=== PATIENT | male | born 1985 | race Hispanic/Latino ===

== ENCOUNTER 2017-09-11 12:43 | Emergency (ER) | payer SELFPAY ==
[2017-09-11] MEDS ORDERED: CATAPRES ONE (13:01)
[2017-09-11] MEDS ORDERED: CATAPRES PO ONE (13:08)
[2017-09-11] MEDS ORDERED: APRESOLINE IV ONE ×2 (16:19→18:08)
--- NOTE | 2017-09-11 16:26 | Emergency Department Report ---
HPI - General Chief Complaint: High BP Time Seen by Provider: 09/11/17 16:02 - HPI HPI: 32-year-old Afro-[place] male presents to the emergency department with 2 main complaints. First is that he says he has rectal bleeding when he has bowel movements. This is been going on since he was younger but there was a time where it stopped and restarted about one year ago. He says he came in today because the bleeding was more than usual. It is usually bright red and only occurs with bowel movements. He had his family member, who is bedside, take a look at the rectum and says that there are "sores" there. Second complaint is that he has elevated blood pressure. The patient does not appear to follow with any primary care physician and it is unknown whether he has never previously been diagnosed with hypertension but he was here in July with a hypertensive urgency at that time. He is not on any blood pressure medications. He denies any tobacco or illicit drug use. He does drink caffeinated products and eat a lot of salt. No recent travel or sick contacts at home. He has not taken anything for his symptoms prior to presentation. ED Past Medical Hx - Past Medical History Hx Hypertension: Yes Hx Psychiatric Treatment: Yes Hx Asthma: Yes - Social History Smoking Status: Never Smoker Substance Use Type: None - Medications Home Medications: Home Medications Medication Instructions Recorded Confirmed Last Taken Type amLODIPine [Norvasc] 10 mg PO DAILY #20 tablet 09/11/17 Unknown Rx ED Review of Systems ROS: Stated complaint: BLOOD IN STOOL Other details as noted in HPI Comment: All other systems reviewed and negative Constitutional: denies: chills, fever Eyes: denies: eye pain, eye discharge, vision change ENT: denies: ear pain, throat pain Respiratory: denies: cough, shortness of breath, wheezing Cardiovascular: denies: chest pain, palpitations Gastrointestinal: other (rectal bleeding). denies: abdominal pain, nausea, diarrhea, melena Genitourinary: denies: urgency, dysuria Musculoskeletal: denies: back pain, joint swelling, arthralgia Skin: denies: rash, lesions Neurological: denies: headache, weakness, paresthesias Physical Exam - Physical Exam Vital Signs: Vital Signs 09/11/17 12:57 Temperature 98.2 F Pulse Rate 99 H Respiratory 18 Rate Blood Pressure 212/138 O2 Sat by Pulse 96 Oximetry Physical Exam: GENERAL: The patient is well-developed well-nourished. HENT: Normocephalic. Atraumatic. Patient has moist mucous membranes. EYES: Extraocular motions are intact. Pupils equal reactive to light bilaterally. NECK: Supple. Trach is midline. CHEST/LUNGS: Clear to auscultation. There is no respiratory distress noted. HEART/CARDIOVASCULAR: Regular. There is no tachycardia. There is no murmur. ABDOMEN: Abdomen is soft, nontender. Patient has normal bowel sounds. Morbid obese habitus. SKIN: Skin is warm and dry. NEURO: The patient is awake, alert, and oriented. The patient is cooperative. The patient has no focal neurologic deficits. The patient has normal speech. MUSCULOSKELETAL: There is no tenderness or deformity. There is no limitation range of motion. There is no evidence of acute injury. RECTAL: No gross blood. Stool positive on guaiac testing. No visible or palpable lesions. ED Course Vital Signs 09/11/17 12:57 Temperature 98.2 F Pulse Rate 99 H Respiratory 18 Rate Blood Pressure 212/138 O2 Sat by Pulse 96 Oximetry - Pulse Oximetry Interpretation Digit-Finger Initial Pulse Oximetry Readin O2 Sat by Pulse Oximetry: 98 Actions Taken: none Additional Comments: Normal ED Medical Decision Making - Lab Data Result diagrams: 09/11/17 16:35 09/11/17 16:35 - EKG Data -: EKG Interpreted by Pa EKG shows normal: sinus rhythm, axis, intervals, QRS complexes (q waves to septal / anterior leads), ST-T waves Rate: normal - EKG Data When compared to previous EKG there are: previous EKG unavailable Interpretation: other (q waves to the septal / anterior leads) - Medical Decision Making Regarding the patient's blood pressure, came down to more reasonable level of about 155/100 after 2 different doses of hydralazine. The patient is not a tobacco smoker but does drink caffeinated products and eat a lot of foods that are bad for him that have a lot of salt in it. He has some room for dietary and lifestyle changes. However the patient will be started on Norvasc to be taken once daily. We discussed buying a blood pressure cuff and keeping a blood pressure log. He was given referrals for primary care. Regarding the patient's rectal bleeding, there was no gross blood but there was positive blood in the stool on guaiac testing. His hemoglobin is normal. Vital signs stable. He understands the importance of follow-up with a etiology teacher and that he may need a colonoscopy in the near future. He will return to the ER with any worsening of symptoms or any acute distress. The rest of his labs have been unremarkable. - Differential Diagnosis hemorrhoids, diverticulosis, malignancy Critical Care Time: No Critical care attestation.: If time is entered above; I have spent that time in minutes in the direct care of this critically ill patient, excluding procedure time. ED Disposition Clinical Impression: Asymptomatic hypertensive urgency, Rectal bleeding Disposition: TO HOME OR SELFCARE Is pt being admited?: No Condition: Stable Instructions: Rectal Bleeding (ED), Hypertension (ED) Additional Instructions: Please follow-up with a primary care physician in the next few days. Try and stay away from foods that are high in salt and caffeinated products to help with your blood pressure. Keep a blood pressure log. I'm starting you on a blood pressure medication: Norvasc/amlodipine that is to be taken once daily. I'm giving him a referral for a local etiology teacher, Dr. Smiley, to follow up regarding your rectal bleeding. Return to the emergency Department with any worsening of your symptoms or any acute distress. Prescriptions: amLODIPine [Norvasc] 10 mg PO DAILY #20 tablet Referrals: JULISA LAUREN MD [Staff Physician] - 3-5 Days CHANDLER SMILEY MD [Staff Physician] - 3-5 Days [facility] [Outside] - 3-5 Days Forms: Work/School Release Form(ED) Time of Disposition: 18:46
[2017-09-11 16:52] LABS: Basophils # (Auto) 0.1 K/mm3 (0.0-0.1); Basophils % (Auto) 2.1 % (0.0-1.8); Eosinophils # (Auto) 0.2 K/mm3 (0.0-0.4); Hematocrit 38.8 % (35.5-45.6); Hemoglobin 12.8 gm/dl (11.8-15.2); Lymphocytes # (Auto) 1.6 K/mm3 (1.2-5.4); Lymphocytes % (Auto) 26.8 % (13.4-35.0); Mean Corpuscular HGB Conc 33 % (32-34); Mean Corpuscular Hemoglobin 31 pg (28-32); Mean Corpuscular Volume 94 fl (84-94); Monocytes # (Auto) 0.5 K/mm3 (0.0-0.8); Monocytes % (Auto) 8.4 % (0.0-7.3); Platelet Count 201 K/mm3 (140-440); Red Blood Count 4.12 M/mm3 (3.65-5.03); Red Cell Distribution Width 13.4 % (13.2-15.2)
[2017-09-11 17:00] LABS: INR 0.88 (0.87-1.13)
[2017-09-11 17:12] LABS: Alanine Aminotransferase 69 units/L (7-56); Albumin 4.1 g/dL (3.9-5); BUN/Creatinine Ratio 17; Blood Urea Nitrogen 15 mg/dL (9-20); Calcium 8.9 mg/dL (8.4-10.2); Hemolysis Index 5
[2017-09-11] MEDS ORDERED: NORMODYNE IV ONE (18:42)
[2017-09-11 19:21] VITALS: BP 155/106
== END 2017-09-11 19:22 | disposition home or self-care (01) ==
LOC: ED 12:43
DX: I16.0 Hypertensive urgency (principal); K62.5 Hemorrhage of anus and rectum; I10 Essential (primary) hypertension
CPT/HCPCS: 36415; 80053; 85025; 85610; 85730; 96374; 96376; 99283; J0360; 93005; 93010

== ENCOUNTER 2019-06-19 10:36 | Emergency (ER) | payer SELFPAY ==
[2019-06-19] MEDS ORDERED: cloNIDine 0.2 MG TAB PO ONE (12:48)
--- NOTE | 2019-06-19 13:06 | Emergency Department Report ---
HPI - General Chief Complaint: High BP Time Seen by Provider: 06/19/19 12:48 - HPI HPI: Room 3 The patient is a 34-year-old male present with a chief complaint of hypertension. The patient states he has not had medication for his blood pressure the past 4 days. Patient states he decided to check his blood pressure at home and found himself to be hypertensive with a blood pressure of 170s/120s. When asked how he is feeling the patient states he feels "fine." ED Past Medical Hx - Past Medical History Hx Hypertension: Yes Hx Psychiatric Treatment: Yes Hx Asthma: Yes - Family History Family history: no significant - Social History Smoking Status: Never Smoker Substance Use Type: None (Denies illicit drug use) - Medications Home Medications: Home Medications Medication Instructions Recorded Confirmed Last Taken Type amLODIPine 10 mg PO DAILY #20 tablet 09/11/17 Unknown Rx amLODIPine 5 mg PO DAILY #90 tab 06/19/19 Unknown Rx ED Review of Systems ROS: Stated complaint: RX FOR BP Other details as noted in HPI Constitutional: no symptoms reported Eyes: denies: eye pain ENT: denies: throat pain Cardiovascular: denies: chest pain Endocrine: no symptoms reported Neurological: denies: headache Physical Exam - Physical Exam Vital Signs: Vital Signs 06/19/19 06/19/19 06/19/19 10:57 12:17 12:27 Temperature 98.6 F Pulse Rate 100 H 93 H 97 H Respiratory 20 13 15 Rate Blood Pressure 207/135 193/121 [Left] Blood Pressure 198/128 [Right] O2 Sat by Pulse 96 99 99 Oximetry Vital Signs 06/19/19 06/19/19 06/19/19 10:57 12:17 12:27 Temperature 98.6 F Pulse Rate 100 H 93 H 97 H Respiratory 20 13 15 Rate Blood Pressure Blood Pressure 207/135 193/121 [Left] Blood Pressure 198/128 [Right] O2 Sat by Pulse 96 99 99 Oximetry 06/19/19 06/19/19 06/19/19 13:00 13:03 13:45 Temperature Pulse Rate 95 H 90 Respiratory 14 17 Rate Blood Pressure 185/134 Blood Pressure 168/111 [Left] Blood Pressure [Right] O2 Sat by Pulse 99 Oximetry 06/19/19 14:17 Temperature Pulse Rate 87 Respiratory 20 Rate Blood Pressure Blood Pressure [Left] Blood Pressure 160/104 [Right] O2 Sat by Pulse 99 Oximetry Physical Exam: GENERAL: The patient is well-developed well-nourished male sitting on stretcher not appearing to be in acute distress. [] HEENT: Normocephalic. Atraumatic. Extraocular motions are intact. Patient has moist mucous membranes. NECK: Supple. Trachea midline CHEST/LUNGS: Clear to auscultation. There is no respiratory distress noted. HEART/CARDIOVASCULAR: Regular. There is no tachycardia. There is no gallop rub or murmur. ABDOMEN: Abdomen is soft, nontender. Patient has normal bowel sounds. There is no abdominal distention. SKIN: There is no rash. There is no edema. There is no diaphoresis. NEURO: The patient is awake, alert, and oriented. The patient is cooperative. The patient has no focal neurologic deficits. The patient has normal speech. Cranial nerves II through XII grossly intact, no drift MUSCULOSKELETAL: There is no evidence of acute injury. ED Course Vital Signs 06/19/19 06/19/19 06/19/19 10:57 12:17 12:27 Temperature 98.6 F Pulse Rate 100 H 93 H 97 H Respiratory 20 13 15 Rate Blood Pressure 207/135 193/121 [Left] Blood Pressure 198/128 [Right] O2 Sat by Pulse 96 99 99 Oximetry ED Medical Decision Making - Differential Diagnosis Accelerated hypertension, hypertensive urgency Critical care attestation.: If time is entered above; I have spent that time in minutes in the direct care of this critically ill patient, excluding procedure time. ED Disposition Clinical Impression: Uncontrolled hypertension Disposition: DC-01 TO HOME OR SELFCARE Is pt being admited?: No Does the pt Need Aspirin: No Condition: Stable Instructions: Hypertension (ED) Additional Instructions: Return to the emergency department should you develop worsening symptoms, inability to tolerate food or liquids, high fever or any other concerns Prescriptions: amLODIPine 5 mg PO DAILY #90 tab Referrals: JULISA MUIR MD [Staff Physician] - 3-5 Days Time of Disposition: 14:22
[2019-06-19 14:18] VITALS: BP 160/104
== END 2019-06-19 15:26 | disposition home or self-care (01) ==
LOC: ED 10:36
DX: I10 Essential (primary) hypertension (principal); J45.909 Unspecified asthma, uncomplicated; Z79.899 Other long term (current) drug therapy; Z88.8 Allergy status to other drugs, medicaments and biological substances
CPT/HCPCS: 99282

== ENCOUNTER 2021-01-02 20:54 | Emergency (ER) | payer SELFPAY | END 2021-01-02 21:58 | disposition left against medical advice (07) | LOC: ED 20:54 | DX: I10 Essential (primary) hypertension (principal); Z53.21 Procedure and treatment not carried out due to patient leaving prior to being seen by health care provider ==

== ENCOUNTER 2021-01-05 13:31 | Inpatient (IN) | payer OTHER ==
[2021-01-05 15:36] LABS: Basophils % (Auto) 0.2 % (0.0-1.8); Eosinophils # (Auto) 0.2 K/mm3 (0.0-0.4); Eosinophils % (Auto) 2.8 % (0.0-4.3); Hematocrit 36.4 % (35.5-45.6); Hemoglobin 12.4 gm/dl (11.8-15.2); Lymphocytes # (Auto) 1.2 K/mm3 (1.2-5.4); Lymphocytes % (Auto) 21.5 % (13.4-35.0); Mean Corpuscular HGB Conc 34 % (32-34); Mean Corpuscular Volume 92 fl (84-94); Monocytes # (Auto) 0.5 K/mm3 (0.0-0.8); Monocytes % (Auto) 9.2 % (0.0-7.3); Red Blood Count 3.98 M/mm3 (3.65-5.03); Red Cell Distribution Width 14.3 % (13.2-15.2)
--- NOTE | 2021-01-05 15:39 | XRay Report ---
CHEST 1 VIEW INDICATION / CLINICAL INFORMATION: Chest Pain STUDY TIME: 1510 COMPARISON: None available. FINDINGS: SUPPORT DEVICES: None HEART / MEDIASTINUM: No significant abnormality. LUNGS / PLEURA: No significant pulmonary or pleural abnormality. No pneumothorax. ADDITIONAL FINDINGS: No significant additional findings. Signer Name: Lobo Cooley MD Signed: 01/05/2021 3:35 PM Workstation Name: [id number] Authentication
[2021-01-05] MEDS ORDERED: niCARdipine 50 MG in SODIUM CHLORIDE 0.9% 250ML 230 ML IV SCH (16:00)
[2021-01-05 16:02] LABS: Albumin 3.5 g/dL (3.9-5)
[2021-01-05 16:13] LABS: Chol/HDL Ratio 3.87 %
[2021-01-05] MEDS: niCARdipine DRIP 40 MG/200 ML BAG IV SCH ×2 (16:15→20:35)
[2021-01-05 16:23] LABS: Platelet Count 98 K/mm3 (140-440)
--- NOTE | 2021-01-05 17:00 | Emergency Department Report ---
ED Neuro Deficit HPI - General Chief Complaint: High BP Stated Complaint: HIGH BLOOD PRESSURE Time Seen by Provider: 01/05/21 14:36 Source: patient Mode of arrival: Ambulatory Limitations: No Limitations - History of Present Illness Initial Comments: Chief complaint: My blood pressure was high, blurry vision, eye CLL HPI: This is a 35-year-old male with history of hypertension, diabetes mellitus, BMI 51 who presents with poor vision for several days he see the color yellow out of his right eye. Visual disturbance present for 4 to 5 days. He was e valuated at [facility] to 2 days ago. Vision slightly improved with blood pressure control. Visual disturbance then returned. He denies headache, chest pain, abdominal pain, paralysis or paresthesias. He does have mild shortness of breath. Patient was evaluated at [facility] his medical home. Systolic blood pressure 260 mmHg. He was referred to the emergency department. -: Gradual, days(s) (5 days) Location: other (Visual disturbance) Presenting Symptoms: Present: Blurred/Loss of Vision History of same: Yes Place: home Severity: severe Improves With: other (Blood pressure improvement) Worsens With: none On Anticoagulants: Yes Context: gradual onset Associated Symptoms: denies other symptoms Treatments Prior to Arrival: none - Related Data Home Medications: Home Medications Medication Instructions Recorded Confirmed Last Taken Aspirin [Aspirin BABY CHEW TAB] 81 mg PO QDAY 01/05/21 01/05/21 Unknown Atorvastatin Calcium [Lipitor] 40 mg PO HS 01/05/21 01/05/21 Unknown Furosemide [Lasix TAB] 40 mg PO QDAY 01/05/21 01/05/21 Unknown Isosorbide Dinitrate [Isordil] 20 mg PO BID 01/05/21 01/05/21 Unknown Losartan Potassium 12.5 mg PO DAILY 01/05/21 01/05/21 Unknown Metformin HCl [metFORMIN ER 500 mg PO BID 01/05/21 01/05/21 Unknown Osmotic] Proventil Hfa 90 mcg INHALATION Q6HR 01/05/21 01/05/21 Unknown carvediloL 25 mg PO BID 01/05/21 01/05/21 Unknown hydrALAZINE 100 mg PO TID 01/05/21 01/05/21 Unknown Allergies/Adverse Reactions: Allergies Allergy/AdvReac Type Severity Reaction Status Date / Time IVP DYE Allergy Vomiting Uncoded 01/05/21 13:49 ED Review of Systems ROS: Stated complaint: HIGH BLOOD PRESSURE Other details as noted in HPI Comment: All other systems reviewed and negative Constitutional: denies: chills, fever, malaise Eyes: vision change ENT: denies: throat pain Respiratory: denies: cough, shortness of breath Cardiovascular: denies: chest pain Gastrointestinal: denies: abdominal pain, nausea Neurological: denies: headache, weakness, numbness, paresthesias, abnormal gait, vertigo ED Past Medical Hx - Past Medical History Previous Medical History?: Yes Hx Hypertension: Yes Hx Congestive Heart Failure: Yes Hx Psychiatric Treatment: Yes Hx Asthma: Yes - Social History Smoking Status: Never Smoker Substance Use Type: None - Medications Home Medications: Home Medications Medication Instructions Recorded Confirmed Last Taken Type Aspirin [Aspirin BABY CHEW TAB] 81 mg PO QDAY 01/05/21 01/05/21 Unknown History Atorvastatin Calcium [Lipitor] 40 mg PO HS 01/05/21 01/05/21 Unknown History Furosemide [Lasix TAB] 40 mg PO QDAY 01/05/21 01/05/21 Unknown History Isosorbide Dinitrate [Isordil] 20 mg PO BID 01/05/21 01/05/21 Unknown History Losartan Potassium 12.5 mg PO DAILY 01/05/21 01/05/21 Unknown History Metformin HCl [metFORMIN ER 500 mg PO BID 01/05/21 01/05/21 Unknown History Osmotic] Proventil Hfa 90 mcg INHALATION Q6HR 01/05/21 01/05/21 Unknown History carvediloL 25 mg PO BID 01/05/21 01/05/21 Unknown History hydrALAZINE 100 mg PO TID 01/05/21 01/05/21 Unknown History ED Neuro Physical Exam - General Limitations: No Limitations General appearance: alert, in no apparent distress Suspected Stroke: Yes - Head Head exam: Present: atraumatic, normocephalic - Eye Eye exam: Present: normal appearance - ENT ENT exam: Present: mucous membranes moist - Neck Neck exam: Present: normal inspection - Respiratory Respiratory exam: Present: normal lung sounds bilaterally. Absent: respiratory distress - Cardiovascular Cardiovascular Exam: Present: regular rate, normal rhythm. Absent: systolic murmur, diastolic murmur, rubs, gallop - GI/Abdominal GI/Abdominal exam: Present: soft, normal bowel sounds - Rectal Rectal exam: Present: deferred - Extremities Exam Extremities exam: Present: normal inspection - Back Exam Back exam: Present: normal inspection - Neurological Exam Neurological exam: Present: alert, oriented X3 - NIHSS Assessment Interval: Baseline 1a. Level of Consciousness: alert/keenly responsive 1b. LOC Questions: answers both correctly 1c. LOC Commands: performs tasks correctly 2. Best Gaze: normal 3. Visual: no visual loss 4. Facial Palsy: normal symmetrical movement 5b. Motor Arm Right: no drift 5a. Motor Arm Left: no drift 6a. Motor Leg Left: no drift 6b. Motor Leg Right: no drift 7. Limb Ataxia: absent 8. Sensory: normal 9. Best Language: no aphasia 10. Dysarthria: normal 11. Extinction/Inattention: no abnormality Total Score: 0 Stroke Severity: No Stroke Symptoms - Psychiatric Psychiatric exam: Present: normal affect, normal mood - Skin Skin exam: Present: warm, dry, intact, normal color. Absent: rash ED Course Vital Signs 01/05/21 01/05/21 01/05/21 13:45 14:46 14:47 Temperature 98.6 F Pulse Rate 101 H 98 H Respiratory 18 17 24 Rate Blood Pressure 258/153 Blood Pressure 233/150 [Right] O2 Sat by Pulse 97 97 96 Oximetry 01/05/21 01/05/21 01/05/21 15:01 15:15 15:16 Temperature Pulse Rate 93 H 99 H Respiratory 19 16 18 Rate Blood Pressure 209/152 248/155 Blood Pressure [Right] O2 Sat by Pulse 96 95 98 Oximetry 01/05/21 01/05/21 01/05/21 15:31 15:45 16:01 Temperature Pulse Rate 89 81 92 H Respiratory 14 13 12 Rate Blood Pressure 244/153 227/159 236/148 Blood Pressure [Right] O2 Sat by Pulse 98 94 95 Oximetry 01/05/21 01/05/21 01/05/21 16:15 16:41 16:45 Temperature Pulse Rate 88 106 H 104 H Respiratory 19 22 22 Rate Blood Pressure 256/173 244/148 220/149 Blood Pressure [Right] O2 Sat by Pulse 95 98 93 Oximetry 01/05/21 01/05/21 17:01 17:15 Temperature Pulse Rate 97 H 98 H Respiratory 15 18 Rate Blood Pressure 230/140 226/151 Blood Pressure [Right] O2 Sat by Pulse 97 97 Oximetry - Lab Data Result diagrams: 01/05/21 15:22 01/05/21 15:22 Lab Results 01/05/21 01/05/21 Range/Units 15:22 15:22 WBC 5.7 (4.5-11.0) K/mm3 RBC 3.98 (3.65-5.03) M/mm3 Hgb 12.4 (11.8-15.2) gm/dl Hct 36.4 (35.5-45.6) % MCV 92 (84-94) fl MCH 31 (28-32) pg MCHC 34 (32-34) % RDW 14.3 (13.2-15.2) % Plt Count 98 L (140-440) K/mm3 Lymph % (Auto) 21.5 (13.4-35.0) % [place] % (Auto) 9.2 H (0.0-7.3) % Eos % (Auto) 2.8 (0.0-4.3) % Baso % (Auto) 0.2 (0.0-1.8) % Lymph # (Auto) 1.2 (1.2-5.4) K/mm3 [place] # (Auto) 0.5 (0.0-0.8) K/mm3 Eos # (Auto) 0.2 (0.0-0.4) K/mm3 Baso # (Auto) 0.0 (0.0-0.1) K/mm3 Seg Neutrophils % 66.3 (40.0-70.0) % Seg Neutrophils # 3.8 (1.8-7.7) K/mm3 Sodium 139 (137-145) mmol/L Potassium 3.7 (3.6-5.0) mmol/L Chloride 102.1 (98-107) mmol/L Carbon Dioxide 23 (22-30) mmol/L Anion Gap 18 mmol/L BUN 20 (9-20) mg/dL Creatinine 2.3 H (0.8-1.3) mg/dL Estimated GFR 32 ml/min BUN/Creatinine Ratio 9 % Glucose 208 H (75-100) mg/dL Calcium 9.0 (8.4-10.2) mg/dL Total Bilirubin 1.20 (0.1-1.2) mg/dL AST 27 (5-40) units/L ALT 25 (7-56) units/L Alkaline Phosphatase 66 (35-129) units/L Troponin T 0.042 H (0.00-0.029) ng/mL NT-Pro-B Natriuret Pep 2727 H (0-450) pg/mL Total Protein 6.4 (6.3-8.2) g/dL Albumin 3.5 L (3.9-5) g/dL Albumin/Globulin Ratio 1.2 % Triglycerides 289 H (2-149) mg/dL Cholesterol 155 (50-199) mg/dL LDL Cholesterol Direct 77 (50-130) mg/dL HDL Cholesterol 40 (40-59) mg/dL Cholesterol/HDL Ratio 3.87 % Laboratory Results - last 24 hr 01/05/21 01/05/21 15:22 15:22 WBC 5.7 RBC 3.98 Hgb 12.4 Hct 36.4 MCV 92 MCH 31 MCHC 34 RDW 14.3 Plt Count 98 L Lymph % (Auto) 21.5 [place] % (Auto) 9.2 H Eos % (Auto) 2.8 Baso % (Auto) 0.2 Lymph # (Auto) 1.2 [place] # (Auto) 0.5 Eos # (Auto) 0.2 Baso # (Auto) 0.0 Seg Neutrophils % 66.3 Seg Neutrophils # 3.8 Sodium 139 Potassium 3.7 Chloride 102.1 Carbon Dioxide 23 Anion Gap 18 BUN 20 Creatinine 2.3 H Estimated GFR 32 BUN/Creatinine Ratio 9 Glucose 208 H Calcium 9.0 Total Bilirubin 1.20 AST 27 ALT 25 Alkaline Phosphatase 66 Troponin T 0.042 H NT-Pro-B Natriuret Pep 2727 H Total Protein 6.4 Albumin 3.5 L Albumin/Globulin Ratio 1.2 Triglycerides 289 H Cholesterol 155 LDL Cholesterol Direct 77 HDL Cholesterol 40 Cholesterol/HDL Ratio 3.87 Vital Signs - 24 hr 01/05/21 01/05/21 01/05/21 13:45 14:46 14:47 Temperature 98.6 F Pulse Rate 101 H 98 H Respiratory 18 17 24 Rate Blood Pressure 258/153 Blood Pressure 233/150 [Right] O2 Sat by Pulse 97 97 96 Oximetry 01/05/21 01/05/21 01/05/21 15:01 15:15 15:16 Temperature Pulse Rate 93 H 99 H Respiratory 19 16 18 Rate Blood Pressure 209/152 248/155 Blood Pressure [Right] O2 Sat by Pulse 96 95 98 Oximetry 01/05/21 01/05/21 01/05/21 15:31 15:45 16:01 Temperature Pulse Rate 89 81 92 H Respiratory 14 13 12 Rate Blood Pressure 244/153 227/159 236/148 Blood Pressure [Right] O2 Sat by Pulse 98 94 95 Oximetry 01/05/21 01/05/21 01/05/21 16:15 16:41 16:45 Temperature Pulse Rate 88 106 H 104 H Respiratory 19 22 22 Rate Blood Pressure 256/173 244/148 220/149 Blood Pressure [Right] O2 Sat by Pulse 95 98 93 Oximetry 01/05/21 01/05/21 17:01 17:15 Temperature Pulse Rate 97 H 98 H Respiratory 15 18 Rate Blood Pressure 230/140 226/151 Blood Pressure [Right] O2 Sat by Pulse 97 97 Oximetry - EKG Data -: EKG Interpreted by Me EKG shows normal: sinus rhythm, axis Rate: normal 01/05/21 16:59 EKG obtained 1534 EKG interpreted by me Normal sinus rhythm rate 90 bpm normal axis prolonged QTC no ST elevation nonspecific T wave pattern inferior Q waves poor R wave progression anterior leads - Radiology Data Radiology results: report reviewed Patient Name: MIKE MONDRAGON Gender: Male Date of : 1985 Referring Provider: NICOLE PICHARDO Organization: [facility] Accession Number: [id number] Requested Date: January 05, 2021 15:15 Report Status: Final Requested Procedure: 1 Procedure Description: XR chest 1V ap Modality: XR Findings Reporting MD: Lobo Cooley Dictation Time: January 05, 2021 14:35 Information Technology Auditor: Not available Luster Applicator Date: CHEST 1 VIEW INDICATION / CLINICAL INFORMATION: Chest Pain STUDY TIME: 1510 COMPARISON: None available. FINDINGS: SUPPORT DEVICES: None HEART / MEDIASTINUM: No significant abnormality. LUNGS / PLEURA: No significant pulmonary or pleural abnormality. No pneumothorax. ADDITIONAL FINDINGS: No significant additional findings. Signer Name: Lobo Cooley MD Signed: 01/05/2021 2:35 PM Workstation Name: MARLO Patient Name: MIKE MONDRAGON Gender: Male Date of : 1985 Referring Provider: NICOLE PICHARDO Organization: [facility] Accession Number: [id number] Requested Date: January 05, 2021 15:43 Report Status: Final Requested Procedure: 1 Procedure Description: CT head/brain wo con Modality: CT Findings Reporting MD: Ant Romo Dictation Time: January 05, 2021 16:07 Information Technology Auditor: Not available Luster Applicator Date: CT BRAIN: 01/05/2021 INDICATION / CLINICAL INFORMATION: Visual disturbance. COMPARISON: None available. FINDINGS: BRAIN/INTRACRANIAL STRUCTURES: Unenhanced CT images of the brain demonstrate no evidence of acute intracranial abnormality. Ventricles and sulci are within normal limits of size and shape for a patient of this age. There is no CT evidence of acute ischemic injury, hemorrhage, or mass. There are no abnormal extra-axial fluid collections. EXTRACRANIAL STRUCTURES: Unremarkable. IMPRESSION: Negative unenhanced CT of the brain. All CT scans at this location are performed using dose reduction to ALARA by means of automated exposure control. Signer Name: Ant Romo MD Signed: 01/05/2021 4:07 PM Workstation Name: [id number] - Medical Decision Making 1. Hypertensive emergency with visual disturbance, Cardene drip initiated emergency department with goal systolic 190 mm Hg 2. CVA with visual disturbance, suspect posterior circulation distribution stroke, CT head, tPA not indicated due to time of onset of symptoms 4 to 5 days ago 3. Cardiomyopathy: Elevated BNP elevated troponin likely reflects structural heart disease, no indication of ACS 4. Acute kidney injury likely acute on chronic renal insufficiency, HTN possible with severe hypertension, patient had normal kidney function 2018 Critical Care Time: Yes Critical care time in (mins) excluding proc time.: 40 Critical care attestation.: If time is entered above; I have spent that time in minutes in the direct care of this critically ill patient, excluding procedure time. 40 minutes of critical care time excluding procedures were used in the care of the patient. I came immediately to the bedside upon patient's arrival to treatment room discussed treatment plan with the nursing team members. I reviewed electronic record. I was concerned for hypertensive emergency with endorgan damage. Patient required multiple interventions and reassessments. ED Disposition Clinical Impression: Hypertensive emergency, CVA (cerebral vascular accident), Visual disturbance, Acute renal insufficiency, Cardiomyopathy Disposition: 09 ADMITTED INPATIENT Is pt being admited?: No Condition: Fair Instructions: Hypertension (ED)
--- NOTE | 2021-01-05 17:12 | Cat Scan Report ---
CT BRAIN: 01/05/2021 INDICATION / CLINICAL INFORMATION: Visual disturbance. COMPARISON: None available. FINDINGS: BRAIN/INTRACRANIAL STRUCTURES: Unenhanced CT images of the brain demonstrate no evidence of acute int racranial abnormality. Ventricles and sulci are within normal limits of size and shape for a patient of this age. There is no CT evidence of acute ischemic injury, hemorrhage, or mass. There are no abnormal extra-ax ial fluid collections. EXTRACRANIAL STRUCTURES: Unremarkable. IMPRESSION: Negative unenhanced CT of the brain. All CT scans at this location are performed using dose reduction to ALARA by means of automated expos ure control. Signer Name: Ant Romo MD Signed: 01/05/2021 5:07 PM Workstation Name: [id number]
[2021-01-05 17:46] LABS: INR 0.9 (0.87-1.13)
[2021-01-05 17:51] LABS: Partial Thromboplastin Time 27.3 Sec. (24.2-36.6)
[2021-01-05 19:18] LABS: Amphetamine Screen,Urine Negative; Benzodiazepines Screen,Urine Negative; Cannabinoid Screen,Urine Negative; Cocaine Screen,Urine Negative; Methadone Screen,Urine Negative; Opiate Screen,Urine Negative
[2021-01-05] MEDS ORDERED: VALSARTAN 160MG TAB PO SCH ×2 (22:00→23:00)
[2021-01-05] MEDS ORDERED: NON-FORMULARY EACH (Metformin Hcl [Metformin Er Osmotic] 500 MG Tab.Er.24) PO SCH (22:15)
[2021-01-05] MEDS ORDERED: NON-FORMULARY EACH (Carvedilol 25 MG) PO SCH (22:15)
--- NOTE | 2021-01-05 22:17 | History and Physical Report ---
History of Present Illness Date of examination: 01/05/21 Date of admission: 01/05/21 17:32 Chief complaint: Blurred vision and headache History of present illness: 35-year-old -[place] male with history of hypertension and diabetes and hyperlipidemia comes in for blurred vision. In the emergency room patient blood pressure was 260/160. Patient was initiated on Cardene drip. Patient states that is compliant with his antihypertensive medications but I am doubtful about him being compliant. Patient has obesity and reservoir 1 7 with her kidneys. Patient has headache and blurred vision but no weakness in any of the 4 extremities. No chest pain. No shortness of breath. Patient was referred by [facility] after they found his blood pressure to be 260s systolic. - Past Medical History --Previous Medical History?: Yes --Hypertension: Yes --Congestive Heart Failure: Yes -- Psychiatric Treatment: Yes -- Asthma: Yes - Surgical history -- patient says that he had a cardiac cath and possibly had stents but not sure - Social History Smoking Status: Never Smoker Substance Use Type: None -Family history --Htn - Medications Home Medications: Home Medications Medication Instructions Recorded Confirmed Last Taken Type Aspirin [Aspirin BABY CHEW TAB] 81 mg PO QDAY 01/05/21 01/05/21 Unknown History Atorvastatin Calcium [Lipitor] 40 mg PO HS 01/05/21 01/05/21 Unknown History Furosemide [Lasix TAB] 40 mg PO QDAY 01/05/21 01/05/21 Unknown History Isosorbide Dinitrate [Isordil] 20 mg PO BID 01/05/21 01/05/21 Unknown History Losartan Potassium 12.5 mg PO DAILY 01/05/21 01/05/21 Unknown History Metformin HCl [metFORMIN ER 500 mg PO BID 01/05/21 01/05/21 Unknown History Osmotic] Proventil Hfa 90 mcg INHALATION Q6HR 01/05/21 01/05/21 Unknown History carvediloL 25 mg PO BID 01/05/21 01/05/21 Unknown History hydrALAZINE 100 mg PO TID 01/05/21 01/05/21 Unknown History Review of Systems ROS: Stated complaint: HIGH BLOOD PRESSURE Other details as noted in HPI Comment: All other systems reviewed and negative Constitutional: denies: chills, fever, malaise Eyes: vision change ENT: denies: throat pain Respiratory: denies: cough, shortness of breath Cardiovascular: denies: chest pain Gastrointestinal: denies: abdominal pain, nausea Neurological: denies: headache, weakness, numbness, paresthesias, abnormal gait, vertigo Medications and Allergies Allergies Allergy/AdvReac Type Severity Reaction Status Date / Time IVP DYE Allergy Vomiting Uncoded 01/05/21 13:49 Home Medications Medication Instructions Recorded Confirmed Last Taken Type Aspirin [Aspirin BABY CHEW TAB] 81 mg PO QDAY 01/05/21 01/05/21 Unknown History Atorvastatin Calcium [Lipitor] 40 mg PO HS 01/05/21 01/05/21 Unknown History Furosemide [Lasix TAB] 40 mg PO QDAY 01/05/21 01/05/21 Unknown History Isosorbide Dinitrate [Isordil] 20 mg PO BID 01/05/21 01/05/21 Unknown History Losartan Potassium 12.5 mg PO DAILY 01/05/21 01/05/21 Unknown History Metformin HCl [metFORMIN ER 500 mg PO BID 01/05/21 01/05/21 Unknown History Osmotic] Proventil Hfa 90 mcg INHALATION Q6HR 01/05/21 01/05/21 Unknown History carvediloL 25 mg PO BID 01/05/21 01/05/21 Unknown History hydrALAZINE 100 mg PO TID 01/05/21 01/05/21 Unknown History Active Meds: Active Medications Nicardipine/Sodium Chloride (Cardene Drip 40 Mg/200 Ml) 40 mg in 200 mls @ 25 mls/hr IV TITR KAREN; Protocol Last Admin: 01/05/21 20:35 Dose: 12.5 mg/hr, 62.5 mls/hr Documented by: Valsartan (Valsartan 160mg Tab) 160 mg PO DAILY KAREN Last Admin: 01/05/21 21:59 Dose: 160 mg Documented by: Exam - Constitutional Vitals: Temp Pulse Resp BP Pulse Ox 98.6 F 114 H 13 154/92 94 01/05/21 13:45 01/05/21 21:59 01/05/21 21:45 01/05/21 21:59 01/05/21 21:45 General appearance: Present: mild distress, well-nourished - EENT Eyes: Present: PERRL ENT: hearing intact, clear oral mucosa - Neck Neck: Present: supple, normal ROM - Respiratory Respiratory effort: normal Respiratory: bilateral: CTA - Cardiovascular Heart rate: 78 Rhythm: regular Heart Sounds: Present: S1 & S2. Absent: rub, click - Extremities Extremities: pulses symmetrical, No edema Peripheral Pulses: within normal limits - Abdominal General gastrointestinal: Present: soft, non-tender, non-distended, normal bowel sounds Male genitourinary: Present: normal - Integumentary Integumentary: Present: clear, warm, dry - Musculoskeletal Musculoskeletal: gait normal, strength equal bilaterally - Psychiatric Psychiatric: appropriate mood/affect, intact judgment & insight - Neurologic Neurologic: CNII-XII intact, moves all extremities HEART Score - HEART Score History: Moderately suspicious Risk factors: 1-2 risk factors Troponin: Troponin T 0.042 ng/mL (0.00-0.029) H 01/05/21 15:22 Troponin: < normal limit - Critical Actions Critical Actions: 0-3 pts:0.9-1.7%risk of adverse cardiac event.Candidate for discharge Results - Labs CBC & Chem 7: 01/05/21 15:22 01/06/21 04:16 Labs: Laboratory Last Values WBC 5.7 K/mm3 (4.5-11.0) 01/05/21 15:22 RBC 3.98 M/mm3 (3.65-5.03) 01/05/21 15:22 Hgb 12.4 gm/dl (11.8-15.2) 01/05/21 15:22 Hct 36.4 % (35.5-45.6) 01/05/21 15:22 MCV 92 fl (84-94) 01/05/21 15:22 MCH 31 pg (28-32) 01/05/21 15:22 MCHC 34 % (32-34) 01/05/21 15:22 RDW 14.3 % (13.2-15.2) 01/05/21 15:22 Plt Count 98 K/mm3 (140-440) L 01/05/21 15:22 Lymph % (Auto) 21.5 % (13.4-35.0) 01/05/21 15:22 [place] % (Auto) 9.2 % (0.0-7.3) H 01/05/21 15:22 Eos % (Auto) 2.8 % (0.0-4.3) 01/05/21 15:22 Baso % (Auto) 0.2 % (0.0-1.8) 01/05/21 15:22 Lymph # (Auto) 1.2 K/mm3 (1.2-5.4) 01/05/21 15:22 [place] # (Auto) 0.5 K/mm3 (0.0-0.8) 01/05/21 15:22 Eos # (Auto) 0.2 K/mm3 (0.0-0.4) 01/05/21 15:22 Baso # (Auto) 0.0 K/mm3 (0.0-0.1) 01/05/21 15:22 Seg Neutrophils % 66.3 % (40.0-70.0) 01/05/21 15:22 Seg Neutrophils # 3.8 K/mm3 (1.8-7.7) 01/05/21 15:22 PT 12.7 Sec. (12.2-14.9) 01/05/21 15:45 INR 0.90 (0.87-1.13) 01/05/21 15:45 APTT 27.3 Sec. (24.2-36.6) 01/05/21 15:45 Thrombin Time 19.0 Sec. (15.1-19.6) 01/05/21 15:45 Sodium 139 mmol/L (137-145) 01/05/21 15:22 Potassium 3.7 mmol/L (3.6-5.0) 01/05/21 15:22 Chloride 102.1 mmol/L (98-107) 01/05/21 15:22 Carbon Dioxide 23 mmol/L (22-30) 01/05/21 15:22 Anion Gap 18 mmol/L 01/05/21 15:22 BUN 20 mg/dL (9-20) 01/05/21 15:22 Creatinine 2.3 mg/dL (0.8-1.3) H 01/05/21 15:22 Estimated GFR 32 ml/min 01/05/21 15:22 BUN/Creatinine Ratio 9 % 01/05/21 15:22 Glucose 208 mg/dL (75-100) H 01/05/21 15:22 Calcium 9.0 mg/dL (8.4-10.2) 01/05/21 15:22 Total Bilirubin 1.20 mg/dL (0.1-1.2) 01/05/21 15:22 AST 27 units/L (5-40) 01/05/21 15:22 ALT 25 units/L (7-56) 01/05/21 15:22 Alkaline Phosphatase 66 units/L (35-129) 01/05/21 15:22 Troponin T 0.042 ng/mL (0.00-0.029) H 01/05/21 15:22 NT-Pro-B Natriuret Pep 2727 pg/mL (0-450) H 01/05/21 15:22 Total Protein 6.4 g/dL (6.3-8.2) 01/05/21 15:22 Albumin 3.5 g/dL (3.9-5) L 01/05/21 15:22 Albumin/Globulin Ratio 1.2 % 01/05/21 15:22 Triglycerides 289 mg/dL (2-149) H 01/05/21 15:22 Cholesterol 155 mg/dL (50-199) 01/05/21 15:22 LDL Cholesterol Direct 77 mg/dL (50-130) 01/05/21 15:22 HDL Cholesterol 40 mg/dL (40-59) 01/05/21 15:22 Cholesterol/HDL Ratio 3.87 % 01/05/21 15:22 Urine Opiates Screen Negative 01/05/21 17:32 Urine Methadone Screen Negative 01/05/21 17:32 Ur Barbiturates Screen Negative 01/05/21 17:32 Ur Phencyclidine Scrn Negative 01/05/21 17:32 Ur Amphetamines Screen Negative 01/05/21 17:32 U Benzodiazepines Scrn Negative 01/05/21 17:32 Urine Cocaine Screen Negative 01/05/21 17:32 U Marijuana (THC) Screen Negative 01/05/21 17:32 Drugs of Abuse Note Disclamer 01/05/21 17:32 Short CBC 01/05/21 Range/Units 15:22 WBC 5.7 (4.5-11.0) K/mm3 Hgb 12.4 (11.8-15.2) gm/dl Hct 36.4 (35.5-45.6) % Plt Count 98 L (140-440) K/mm3 BMP 01/05/21 01/06/21 15:22 04:16 Sodium 139 136 L Potassium 3.7 3.8 Chloride 102.1 99.5 Carbon Dioxide 23 25 BUN 20 21 H Creatinine 2.3 H 2.3 H Glucose 208 H 350 H Calcium 9.0 8.7 Cardiac Enzymes 01/05/21 Range/Units 15:22 Troponin T 0.042 H (0.00-0.029) ng/mL Liver Function 01/05/21 Range/Units 15:22 Total Bilirubin 1.20 (0.1-1.2) mg/dL AST 27 (5-40) units/L ALT 25 (7-56) units/L Alkaline Phosphatase 66 (35-129) units/L Albumin 3.5 L (3.9-5) g/dL - Imaging and Cardiology Imaging and Cardiology: Chest x-ray No acute abnormality head CT Negative Assessment and Plan Advance Directives: Yes (Full code) VTE prophylaxis?: Chemical Plan of care discussed with patient/family: Yes - Patient Problems (1) Hypertensive emergency Current Visit: Yes Status: Acute Plan to address problem: Patient was initiated on Cardene drip Patient was given his home medications Losartan was discontinued and started on valsartan 160 every 12 Patient blood pressure came down to reasonable readings of 145/95 in the emergency room Patient was downgraded from ICU admission to telemetry admission (2) TIA (transient ischemic attack) Current Visit: Yes Status: Acute Plan to address problem: Patient complains of blurred vision which is possibly secondary to his high blood pressure levels of 260/160 We will get neuro consult Neuro event unlikely (3) Elevated brain natriuretic peptide (BNP) level Current Visit: Yes Status: Acute Plan to address problem: Echocardiogram for ejection fraction and valve function (4) BHAVANA (acute kidney injury) Current Visit: Yes Status: Acute Plan to address problem: BHAVANA possibly superimposed on CKD given his longstanding hypertension Nephrology consult requested (5) Elevated troponin Current Visit: Yes Status: Chronic Plan to address problem: Probable troponin leak Cardiology consult Repeat troponins and CK levels (6) DVT prophylaxis Current Visit: Yes Status: Acute Plan to address problem: On heparin and GI prophylaxis
[2021-01-05] MEDS: carvediloL 25 MG TAB PO SCH (22:43)
[2021-01-05] MEDS ORDERED: ACETAMINOPHEN 325 MG TAB PO PRN (23:00)
[2021-01-05] MEDS ORDERED: ONDANSETRON 4 MG/2 ML INJ IV PRN (23:00)
[2021-01-05] MEDS ORDERED: METOCLOPRAMIDE 10 MG/2 ML INJ IV PRN (23:00)
[2021-01-05] MEDS ORDERED: oxyCODONE /ACETAMINOPHEN 5-325MG TAB PO PRN (23:00)
[2021-01-05] MEDS ORDERED: HYDROmorphone 1 MG/1 ML INJ IV PRN (23:00)
[2021-01-06] MEDS ORDERED: PROVENTIL 90 MCG INHALATION SCH
[2021-01-06] MEDS: hydrALAZINE 20 MG/1 ML INJ IV PRN ×3 (02:25→07:38)
[2021-01-06] MEDS: ISOSORBIDE DINITRATE 20 MG TAB PO SCH ×3 (03:04→21:05)
[2021-01-06 05:00] LABS: Calcium 8.7 mg/dL (8.4-10.2)
[2021-01-06] MEDS: ALBUTEROL 8.5 GM MDI INHALATION IH SCH ×2 (07:21→07:22)
[2021-01-06] MEDS ORDERED: NON-FORMULARY EACH (Hydralazine 100 MG) PO SCH (08:00)
[2021-01-06] MEDS ORDERED: metFORMIN XR 500MG TAB PO SCH (08:00)
[2021-01-06] MEDS: hydrALAZINE 100 MG TAB PO SCH ×3 (08:13→21:05)
[2021-01-06 09:09] LABS: Creatine Kinase MB 4.2 ng/mL (0.0-4.0)
--- NOTE | 2021-01-06 09:22 | Consultation ---
History of Present Illness Consult date: 01/06/21 Reason for Consult: Blurred vision and headache,BP initial 260/160 ? History of present illness: Blurred vision and headache History of present illness: 35-year-old -[place]er male with history of hypertension and diabetes and hyperlipidemia comes in for blurred vision. In the emergency room patient blood pressure was 260/160. Patient was initiated on Cardene drip. Patient states that is compliant with his antihypertensive medications but I am doubtful about him being compliant. Patient has obesity and reservoir 1 7 with her kidneys. Patient has headache and blurred vision but no weakness in any of the 4 extremities. No chest pain. No shortness of breath. Patient was referred by [facility] [place] after they found his blood pressure to be 260s systolic. he is alert oriented today no headache , still with blurred vision he is complying with his medications - Past Medical History --Previous Medical History?: Yes --Hypertension: Yes --Congestive Heart Failure: Yes -- Psychiatric Treatment: Yes -- Asthma: Yes - Surgical history -- patient says that he had a cardiac cath and possibly had stents but not sure - Social History Smoking Status: Never Smoker Substance Use Type: None -Family history --Htn - Medications Home Medications: Home Medications Medication Instructions Recorded Confirmed Last Taken Type Aspirin [Aspirin BABY CHEW TAB] 81 mg PO QDAY 01/05/21 01/05/21 Unknown History Atorvastatin Calcium [Lipitor] 40 mg PO HS 01/05/21 01/05/21 Unknown History Furosemide [Lasix TAB] 40 mg PO QDAY 01/05/21 01/05/21 Unknown History Isosorbide Dinitrate [Isordil] 20 mg PO BID 01/05/21 01/05/21 Unknown History Losartan Potassium 12.5 mg PO DAILY 01/05/21 01/05/21 Unknown History Metformin HCl [metFORMIN ER 500 mg PO BID 01/05/21 01/05/21 Unknown History Osmotic] Proventil Hfa 90 mcg INHALATION Q6HR 01/05/21 01/05/21 Unknown History carvediloL 25 mg PO BID 01/05/21 01/05/21 Unknown History hydrALAZINE 100 mg PO TID 01/05/21 01/05/21 Unknown History Review of Systems ROS: Stated complaint: HIGH BLOOD PRESSURE Other details as noted in HPI Comment: All other systems reviewed and negative Constitutional: denies: chills, fever, malaise Eyes: vision change ENT: denies: throat pain Respiratory: denies: cough, shortness of breath Cardiovascular: denies: chest pain Gastrointestinal: denies: abdominal pain, nausea Neurological: denies: headache, weakness, numbness, paresthesias, abnormal gait, vertigo Medications and Allergies Allergies Allergy/AdvReac Type Severity Reaction Status Date / Time IVP DYE Allergy Vomiting Uncoded 01/05/21 13:49 Home Medications Medication Instructions Recorded Confirmed Last Taken Type Aspirin [Aspirin BABY CHEW TAB] 81 mg PO QDAY 01/05/21 01/05/21 Unknown History Atorvastatin Calcium [Lipitor] 40 mg PO HS 01/05/21 01/05/21 Unknown History Furosemide [Lasix TAB] 40 mg PO QDAY 01/05/21 01/05/21 Unknown History Isosorbide Dinitrate [Isordil] 20 mg PO BID 01/05/21 01/05/21 Unknown History Losartan Potassium 12.5 mg PO DAILY 01/05/21 01/05/21 Unknown History Metformin HCl [metFORMIN ER 500 mg PO BID 01/05/21 01/05/21 Unknown History Osmotic] Proventil Hfa 90 mcg INHALATION Q6HR 01/05/21 01/05/21 Unknown History carvediloL 25 mg PO BID 01/05/21 01/05/21 Unknown History hydrALAZINE 100 mg PO TID 01/05/21 01/05/21 Unknown History Active Meds: Active Medications Nicardipine/Sodium Chloride (Cardene Drip 40 Mg/200 Ml) 40 mg in 200 mls @ 25 mls/hr IV TITR KAREN; Protocol Last Admin: 01/05/21 20:35 Dose: 12.5 mg/hr, 62.5 mls/hr Documented by: Valsartan (Valsartan 160mg Tab) 160 mg PO DAILY KAREN Last Admin: 01/05/21 21:59 Dose: 160 mg Documented by: Medications and Allergies Allergies Allergy/AdvReac Type Severity Reaction Status Date / Time IVP DYE Allergy Vomiting Uncoded 01/05/21 13:49 Home Medications Medication Instructions Recorded Confirmed Last Taken Type Aspirin [Aspirin BABY CHEW TAB] 81 mg PO QDAY 01/05/21 01/05/21 Unknown History Atorvastatin Calcium [Lipitor] 40 mg PO HS 01/05/21 01/05/21 Unknown History Furosemide [Lasix TAB] 40 mg PO QDAY 01/05/21 01/05/21 Unknown History Isosorbide Dinitrate [Isordil] 20 mg PO BID 01/05/21 01/05/21 Unknown History Losartan Potassium 12.5 mg PO DAILY 01/05/21 01/05/21 Unknown History Metformin HCl [metFORMIN ER 500 mg PO BID 01/05/21 01/05/21 Unknown History Osmotic] Proventil Hfa 90 mcg INHALATION Q6HR 01/05/21 01/05/21 Unknown History carvediloL 25 mg PO BID 01/05/21 01/05/21 Unknown History hydrALAZINE 100 mg PO TID 01/05/21 01/05/21 Unknown History Active Meds: Active Medications Acetaminophen (Acetaminophen 325 Mg Tab) 650 mg PO Q4H PRN PRN Reason: Pain MILD(1-3)/Fever >100.5/SAWANT Last Admin: 01/05/21 22:43 Dose: 650 mg Documented by: Albuterol (Albuterol 8.5 Gm Mdi Inhalation) 2 puff IH Q6HR [facility] Last Admin: 01/06/21 07:22 Dose: Not Given Documented by: Amlodipine Besylate (Amlodipine 10 Mg Tab) 10 mg PO QDAY [facility] Aspirin (Aspirin 81 Mg Tab Chew) 81 mg PO QDAY [facility] Atorvastatin Calcium (Atorvastatin 40 Mg Tab) 40 mg PO QHS [facility] Carvedilol (Carvedilol 25 Mg Tab) 25 mg PO BID [facility] Last Admin: 01/05/21 22:43 Dose: 25 mg Documented by: Clonidine HCl (Clonidine 0.1 Mg Tab) 0.1 mg PO Q12HR [facility] Famotidine (Famotidine 20 Mg Tab) 20 mg PO BID [facility] Heparin Sodium (Porcine) (Heparin 5,000 Unit/1 Ml Vial) 5,000 unit SUB-Q Q12HR [facility] Hydralazine HCl (Hydralazine 20 Mg/1 Ml Inj) 10 mg IV Q2H PRN PRN Reason: Blood Pressure Last Admin: 01/06/21 07:38 Dose: 10 mg Documented by: Hydralazine HCl (Hydralazine 100 Mg Tab) 100 mg PO TID [facility] Last Admin: 01/06/21 08:13 Dose: 100 mg Documented by: Hydromorphone HCl (Hydromorphone 1 Mg/1 Ml Inj) 0.5 mg IV Q3H PRN PRN Reason: Pain , Severe (7-10) Nicardipine/Sodium Chloride (Cardene Drip 40 Mg/200 Ml) 40 mg in 200 mls @ 25 mls/hr IV TITR [facility]; Protocol Last Admin: 01/05/21 20:35 Dose: 12.5 mg/hr, 62.5 mls/hr Documented by: Insulin Human Lispro (Insulin Lispro 100 Unit/Ml) 0 unit SUB-Q ACHS [facility]; Protocol Isosorbide Dinitrate (Isosorbide Dinitrate 20 Mg Tab) 20 mg PO BID [facility] Last Admin: 01/06/21 03:04 Dose: 20 mg Documented by: Metformin HCl (Metformin Xr 500mg Tab) 500 mg PO BIDDIAB [facility] Metoclopramide HCl (Metoclopramide 10 Mg/2 Ml Inj) 10 mg IV Q6H PRN PRN Reason: Nausea And Vomiting Ondansetron HCl (Ondansetron 4 Mg/2 Ml Inj) 4 mg IV Q8H PRN PRN Reason: Nausea And Vomiting Oxycodone/Acetaminophen (Oxycodone /Acetaminophen 5-325mg Tab) 1 tab PO Q6H PRN PRN Reason: Pain, Moderate (4-6) Sodium Chloride (Sodium Chloride 0.9% 10 Ml Flush Syringe) 10 ml IV BID [facility] Sodium Chloride (Sodium Chloride 0.9% 10 Ml Flush Syringe) 10 ml IV PRN PRN PRN Reason: LINE FLUSH Physical Examination - Vital Signs Vital Signs: Vital Signs Temp Pulse Resp BP Pulse Ox 98.6 F 101 H 18 258/153 97 01/05/21 13:45 01/05/21 13:45 01/05/21 13:45 01/05/21 13:45 01/05/21 13:45 - Constitutional General appearance: comfortable - EENT EENT: Present: PERRL, mucous membranes moist - Respiratory Respiratory: Present: lungs clear, rhonchi - Cardiovascular Cardiovascular: Present: regular rate, normal S1, normal S2 Extremities: Present: no peripheral edema bilatateraly, no clubbing, cyanosis - Gastrointestinal Gastrointestinal: Present: normoactive bowel sounds - Integumentary Integumentary: Present: normal - Neurologic Cranial nerve examination: PERRL, EOMI, intact Speech examination: intact Sensorimotor examination: intact Detailed motor examination: grossly full strength in - Level of Consciousness 1a. Level of Consciousness: alert/keenly responsive - LOC Questions 1b. LOC Questions: answers both correctly - LOC Command 1c. LOC Commands: performs tasks correctly - Best Gaze 2. Best Gaze: normal - Visual 3. Visual: no visual loss - Facial Palsy 4. Facial Palsy: normal symmetrical movement - Motor Arm 5a. Motor Arm Left: no drift 5b. Motor Arm Right: no drift - Motor Leg 6a. Motor Leg Left: no drift 6b. Motor Leg Right: no drift - Limb Ataxia 7. Limb Ataxia: absent - Sensory 8. Sensory: normal - Best Language 9. Best Language: no aphasia - Dysarthria 10. Dysarthria: normal - Extinction and Inattention 11. Extinction/Inattention: no abnormality - Scoring Total Score: 0 Stroke Severity: No Stroke Symptoms Results - Laboratory Findings CBC and BMP: 01/05/21 15:22 01/06/21 04:16 Abnormal Lab Findings: Abnormal Labs 01/05/21 01/05/21 01/06/21 15:22 15:22 04:16 Plt Count 98 L [place] % (Auto) 9.2 H Sodium 136 L BUN 21 H Creatinine 2.3 H 2.3 H Glucose 208 H 350 H POC Glucose Total Creatine Kinase CK-MB (CK-2) Troponin T 0.042 H NT-Pro-B Natriuret Pep 2727 H Albumin 3.5 L Triglycerides 289 H 01/06/21 01/06/21 08:24 08:54 Plt Count [place] % (Auto) Sodium BUN Creatinine Glucose POC Glucose 321 H Total Creatine Kinase 363 H CK-MB (CK-2) 4.2 H Troponin T 0.039 H NT-Pro-B Natriuret Pep Albumin Triglycerides Assessment and Plan Assessment and Plan Advance Directives: Yes (Full code) VTE prophylaxis?: Chemical Plan of care discussed with patient/family: Yes - Patient Problems # Hypertensive emergency Patient was initiated on Cardene drip Patient was given his home medications Losartan was discontinued and started on valsartan 160 every 12 Patient blood pressure came down to reasonable readings of 145/95 in the emergency room Patient was downgraded from ICU admission to telemetry admission # blurred vison with no weakness -NIH#0 -finding is mostly related to above -PRESS can not be excluded -No sign to suggest CVA/TIA -MRI brain is pending #Elevated brain natriuretic peptide (BNP) level -Echocardiogram for ejection fraction and valve function # BHAVANA (acute kidney injury) -BHAVANA possibly superimposed on CKD given his longstanding hypertension -Nephrology consult requested # Elevated troponin -Probable troponin leak -Cardiology consult -Repeat troponins and CK levels # Possible underlying sleep apnea -weight loss -sleep study -check TSH # DVT prophylaxis -On heparin and GI prophylaxis PLAN 1- BP<150/80 2-Close monitering of BP at home 3-weight loss 4- MRI brain 5- ASA 81 mg and Lipitor 40 mg 6- LDL#77 will follow
[2021-01-06] MEDS: cloNIDine 0.1 MG TAB PO SCH ×2 (09:40→21:04)
[2021-01-06] MEDS: ASPIRIN 81 MG TAB CHEW PO SCH (09:40)
[2021-01-06] MEDS: carvediloL 25 MG TAB PO SCH ×2 (09:41→21:05)
[2021-01-06] MEDS: HEPARIN 5,000 UNIT/1 ML VIAL SUB-Q SCH ×2 (09:41→21:06)
[2021-01-06] MEDS: amLODIPine 10 MG TAB PO SCH (09:41)
[2021-01-06] MEDS: INSULIN LISPRO 100 UNIT/ML SUB-Q SCH ×4 (09:42→23:06)
[2021-01-06] MEDS ORDERED: FUROSEMIDE 40 MG TAB PO SCH (10:00)
[2021-01-06] MEDS ORDERED: FAMOTIDINE 20 MG TAB PO SCH (10:00)
--- NOTE | 2021-01-06 10:23 | Progress Note ---
Assessment and Plan Assessment and plan: -- Hypertensive emergency; present on admission Current Visit: Yes Status: Acute Patient did not need Cardene drip Blood pressures moderate control Continue current medications And as needed hydralazine --Blurred vision /probably secondary to hypertensive emergency Rule out TIA (transient ischemic attack) Current Visit: Yes Status: Acute CT head without contrast no acute abnormality Neurology evaluation noted and appreciated Recommend MRI of the brain --Elevated brain natriuretic peptide (BNP) level Current Visit: Yes Status: Acute Echocardiogram for ejection fraction and valve function Cardiology following --BHAVANA (acute kidney injury) Current Visit: Yes Status: Acute Vasomotor nephropathy , closely monitor renal function Avoid nephrotoxin , renal ultrasound Nephrology consult -- Elevated troponin Current Visit: Yes Status: Acute Probably nonspecific Hypertensive cardiomyopathy Cardiology evaluation noted and appreciated Possible stress test tomorrow -Uncontrolled type 2 diabetes mellitus; Current Visit: Yes Status: Chronic Probably noncompliance with medications Accu-Chek sliding scale coverage ADA diet Long-acting insulin Novolin 70/30 15 units twice a day HbA1c --Dyslipidemia; Current Visit: Yes Status: Chronic Low-cholesterol diet, statin Rigorous exercise as tolerated --morbid obesity; BMI 51.5; Current Visit: Yes Status: Chronic Patient needs diet modification lifestyle changes exercise as tolerated and weight reduction when medically stable Patient also need outpatient pulmonary evaluation for sleep study to rule out obstructive sleep apnea --medical noncompliance/social issues; Current Visit: Yes Status: Chronic Case management to assist with social issues --DVT prophylaxis Current Visit: Yes Status: Acute On heparin and GI prophylaxis We will closely monitor patient and adjust management as needed Plan of care reviewed with the patient and his nurse Security System Sales Consultant recommendations noted and appreciated History Interval history: I have seen and examined the patient at the bedside Patient's chart and medications reviewed Patient was admitted with hypertensive emergency Blood pressures moderate control Hospitalist Physical - Constitutional Vitals: Temp Pulse Resp BP Pulse Ox 98.6 F 101 H 20 176/101 97 01/05/21 13:45 01/06/21 07:39 01/06/21 07:39 01/06/21 07:39 01/06/21 07:39 General appearance: Present: mild distress, well-nourished - EENT Eyes: Present: PERRL, EOM intact - Neck Neck: Present: supple, normal ROM - Respiratory Respiratory effort: normal Respiratory: bilateral: diminished, negative: rales, rhonchi, wheezing - Cardiovascular Rhythm: regular Heart Sounds: Present: S1 & S2 - Extremities Extremities: no ischemia, No edema - Abdominal General gastrointestinal: soft, non-tender, non-distended, normal bowel sounds - Integumentary Integumentary: Present: clear, warm - Psychiatric Psychiatric: appropriate mood/affect, cooperative - Neurologic Neurologic: CNII-XII intact, moves all extremities HEART Score - HEART Score Risk factors: 1-2 risk factors Troponin: Troponin T 0.039 ng/mL (0.00-0.029) H 01/06/21 08:24 Troponin: < normal limit - Critical Actions Critical Actions: 0-3 pts:0.9-1.7%risk of adverse cardiac event.Candidate for discharge Results - Labs CBC & Chem 7: 01/05/21 15:22 01/06/21 04:16 Labs: Laboratory Last Values WBC 5.7 K/mm3 (4.5-11.0) 01/05/21 15: RBC 3.98 M/mm3 (3.65-5.03) 01/05/21 15:22 Hgb 12.4 gm/dl (11.8-15.2) 01/05/21 15:22 Hct 36.4 % (35.5-45.6) 01/05/21 15:22 MCV 92 fl (84-94) 01/05/21 15:22 MCH 31 pg (28-32) 01/05/21 15:22 MCHC 34 % (32-34) 01/05/21 15:22 RDW 14.3 % (13.2-15.2) 01/05/21 15:22 Plt Count 98 K/mm3 (140-440) L 01/05/21 15:22 Lymph % (Auto) 21.5 % (13.4-35.0) 01/05/21 15:22 [place] % (Auto) 9.2 % (0.0-7.3) H 01/05/21 15:22 Eos % (Auto) 2.8 % (0.0-4.3) 01/05/21 15:22 Baso % (Auto) 0.2 % (0.0-1.8) 01/05/21 15:22 Lymph # (Auto) 1.2 K/mm3 (1.2-5.4) 01/05/21 15:22 [place] # (Auto) 0.5 K/mm3 (0.0-0.8) 01/05/21 15:22 Eos # (Auto) 0.2 K/mm3 (0.0-0.4) 01/05/21 15:22 Baso # (Auto) 0.0 K/mm3 (0.0-0.1) 01/05/21 15:22 Seg Neutrophils % 66.3 % (40.0-70.0) 01/05/21 15:22 Seg Neutrophils # 3.8 K/mm3 (1.8-7.7) 01/05/21 15:22 PT 12.7 Sec. (12.2-14.9) 01/05/21 15:45 INR 0.90 (0.87-1.13) 01/05/21 15:45 APTT 27.3 Sec. (24.2-36.6) 01/05/21 15:45 Thrombin Time 19.0 Sec. (15.1-19.6) 01/05/21 15:45 Sodium 136 mmol/L (137-145) L 01/06/21 04:16 Potassium 3.8 mmol/L (3.6-5.0) 01/06/21 04:16 Chloride 99.5 mmol/L (98-107) 01/06/21 04:16 Carbon Dioxide 25 mmol/L (22-30) 01/06/21 04:16 Anion Gap 15 mmol/L 01/06/21 04:16 BUN 21 mg/dL (9-20) H 01/06/21 04:16 Creatinine 2.3 mg/dL (0.8-1.3) H 01/06/21 04:16 Estimated GFR 32 ml/min 01/06/21 04:16 BUN/Creatinine Ratio 9 % 01/06/21 04:16 Glucose 350 mg/dL (75-100) H 01/06/21 04:16 POC Glucose 321 mg/dL (70-105) H 01/06/21 08:54 Calcium 8.7 mg/dL (8.4-10.2) 01/06/21 04:16 Total Bilirubin 1.20 mg/dL (0.1-1.2) 01/05/21 15:22 AST 27 units/L (5-40) 01/05/21 15:22 ALT 25 units/L (7-56) 01/05/21 15:22 Alkaline Phosphatase 66 units/L (35-129) 01/05/21 15:22 Total Creatine Kinase 363 units/L (55-170) H 01/06/21 08:24 CK-MB (CK-2) 4.2 ng/mL (0.0-4.0) H 01/06/21 08:24 CK-MB (CK-2) Rel Index 1.1 (0-4) 01/06/21 08:24 Troponin T 0.039 ng/mL (0.00-0.029) H 01/06/21 08:24 NT-Pro-B Natriuret Pep 2727 pg/mL (0-450) H 01/05/21 15:22 Total Protein 6.4 g/dL (6.3-8.2) 01/05/21 15:22 Albumin 3.5 g/dL (3.9-5) L 01/05/21 15:22 Albumin/Globulin Ratio 1.2 % 01/05/21 15:22 Triglycerides 289 mg/dL (2-149) H 01/05/21 15:22 Cholesterol 155 mg/dL (50-199) 01/05/21 15:22 LDL Cholesterol Direct 77 mg/dL (50-130) 01/05/21 15:22 HDL Cholesterol 40 mg/dL (40-59) 01/05/21 15:22 Cholesterol/HDL Ratio 3.87 % 01/05/21 15:22 Urine Opiates Screen Negative 01/05/21 17:32 Urine Methadone Screen Negative 01/05/21 17:32 Ur Barbiturates Screen Negative 01/05/21 17:32 Ur Phencyclidine Scrn Negative 01/05/21 17:32 Ur Amphetamines Screen Negative 01/05/21 17:32 U Benzodiazepines Scrn Negative 01/05/21 17:32 Urine Cocaine Screen Negative 01/05/21 17:32 U Marijuana (THC) Screen Negative 01/05/21 17:32 Drugs of Abuse Note Disclamer 01/05/21 17:32 Active Medications - Current Medications Current Medications: Generic Name Dose Route Start Last Admin Trade Name Freq PRN Reason Stop Dose Admin Acetaminophen 650 mg 01/05/21 23:00 01/05/21 22:43 Acetaminophen 325 Mg Tab PO 650 mg Q4H PRN Administration Pain MILD(1-3)/Fever >100.5/SAWANT Albuterol 2 puff 01/06/21 01:00 01/06/21 07:22 Albuterol 8.5 Gm Mdi Inhalation IH Not Given Q6HR [facility] Amlodipine Besylate 10 mg 01/06/21 10:00 01/06/21 09:41 Amlodipine 10 Mg Tab PO 10 mg QDAY KAREN Administration Aspirin 81 mg 01/06/21 10:00 01/06/21 09:40 Aspirin 81 Mg Tab Chew PO 81 mg QDAY KAREN Administration Atorvastatin Calcium 40 mg 01/06/21 22:00 Atorvastatin 40 Mg Tab PO QHS KAREN Carvedilol 25 mg 01/05/21 23:00 01/06/21 09:41 Carvedilol 25 Mg Tab PO 25 mg BID KAREN Administration Clonidine HCl 0.1 mg 01/06/21 10:00 01/06/21 09:40 Clonidine 0.1 Mg Tab PO 0.1 mg Q12HR KAREN Administration Famotidine 20 mg 01/06/21 10:00 01/06/21 09:41 Famotidine 20 Mg Tab PO 20 mg BID KAREN Administration Heparin Sodium (Porcine) 5,000 unit 01/06/21 10:00 01/06/21 09:41 Heparin 5,000 Unit/1 Ml Vial SUB-Q 5,000 unit Q12HR KAREN Administration Hydralazine HCl 10 mg 01/05/21 23:00 01/06/21 07:38 Hydralazine 20 Mg/1 Ml Inj IV 10 mg Q2H PRN Administration Blood Pressure Hydralazine HCl 100 mg 01/06/21 08:00 01/06/21 08:13 Hydralazine 100 Mg Tab PO 100 mg TID KAREN Administration Hydromorphone HCl 0.5 mg 01/05/21 23:00 Hydromorphone 1 Mg/1 Ml Inj IV Q3H PRN Pain , Severe (7-10) Nicardipine/Sodium Chloride 40 mg in 200 mls @ 25 mls/hr 01/05/21 16:00 01/05/21 20:35 Cardene Drip 40 Mg/200 Ml IV 12.5 mg/hr TITR KAREN 62.5 mls/hr Administration Protocol 5 MG/HR Insulin Human Lispro 0 unit 01/06/21 07:30 01/06/21 09:42 Insulin Lispro 100 Unit/Ml SUB-Q 8 unit ACHS KAREN Administration Protocol Isosorbide Dinitrate 20 mg 01/05/21 23:00 01/06/21 09:40 Isosorbide Dinitrate 20 Mg Tab PO 20 mg BID KAREN Administration Metformin HCl 500 mg 01/06/21 08:00 Metformin Xr 500mg Tab PO BIDDIAB KAREN Metoclopramide HCl 10 mg 01/05/21 23:00 Metoclopramide 10 Mg/2 Ml Inj IV Q6H PRN Nausea And Vomiting Ondansetron HCl 4 mg 01/05/21 23:00 Ondansetron 4 Mg/2 Ml Inj IV Q8H PRN Nausea And Vomiting Oxycodone/Acetaminophen 1 tab 01/05/21 23:00 Oxycodone /Acetaminophen 5-325mg Tab PO Q6H PRN Pain, Moderate (4-6) Sodium Chloride 10 ml 01/06/21 10:00 01/06/21 09:42 Sodium Chloride 0.9% 10 Ml Flush Syringe IV 10 ml BID KAREN Administration Sodium Chloride 10 ml 01/05/21 23:00 Sodium Chloride 0.9% 10 Ml Flush Syringe IV PRN PRN LINE FLUSH
[2021-01-06] MEDS ORDERED: METOCLOPRAMIDE 10 MG/2 ML INJ IV PRN (12:00)
[2021-01-06] MEDS ORDERED: ALBUTEROL 2.5 MG/3 ML NEBU IH PRN (12:00)
--- NOTE | 2021-01-06 15:53 | Consultation ---
History of Present Illness Consult date: 01/06/21 Requesting physician: DESIRE SINCLAIR Consult reason: other (hypertensive emergency) History of present illness: Patient is 35 y/o male with a PMHx of HNT, DM, HLD who came to the Ed with a complaint of of headaches and blurred vision. Patient reports that for last 5 days his BP has been extremely elevated but that when his vision became blurred he came to ED. He also reports that last month he went to doctors office where before he left he had to take medications to decrease his BP. He was unable to provide the doctor that he saw or the medication he was given. He admits that his BP is chronically elevated. Patient denies chest pain, SOB, WHELAN, nausea or vomiting. In Ed patients BP was found to be 260/160, troponins 0.042, BNP 2727. Cardiology is consulted for elevated troponins and hypertensive emergency. Past History Past Medical History: diabetes, hypertension Past Surgical History: No surgical history Social history: lives with family Family history: no significant family history Medications and Allergies Allergies Allergy/AdvReac Type Severity Reaction Status Date / Time IVP DYE Allergy Vomiting Uncoded 01/05/21 13:49 Home Medications Medication Instructions Recorded Confirmed Last Taken Type Aspirin [Aspirin BABY CHEW TAB] 81 mg PO QDAY 01/05/21 01/05/21 Unknown History Atorvastatin Calcium [Lipitor] 40 mg PO HS 01/05/21 01/05/21 Unknown History Furosemide [Lasix TAB] 40 mg PO QDAY 01/05/21 01/05/21 Unknown History Isosorbide Dinitrate [Isordil] 20 mg PO BID 01/05/21 01/05/21 Unknown History Losartan Potassium 12.5 mg PO DAILY 01/05/21 01/05/21 Unknown History Metformin HCl [metFORMIN ER 500 mg PO BID 01/05/21 01/05/21 Unknown History Osmotic] Proventil Hfa 90 mcg INHALATION Q6HR 01/05/21 01/05/21 Unknown History carvediloL 25 mg PO BID 01/05/21 01/05/21 Unknown History hydrALAZINE 100 mg PO TID 01/05/21 01/05/21 Unknown History Active Meds: Active Medications Acetaminophen (Acetaminophen 325 Mg Tab) 650 mg PO Q4H PRN PRN Reason: Pain MILD(1-3)/Fever >100.5/SAWANT Last Admin: 01/05/21 22:43 Dose: 650 mg Documented by: Albuterol (Albuterol 2.5 Mg/3 Ml Nebu) 2.5 mg IH Q6HR PRN PRN Reason: Shortness Of Breath Amlodipine Besylate (Amlodipine 10 Mg Tab) 10 mg PO QDAY [facility] [place] Last Admin: 01/06/21 09:41 Dose: 10 mg Documented by: Aspirin (Aspirin 81 Mg Tab Chew) 81 mg PO QDAY [facility] [place] Last Admin: 01/06/21 09:40 Dose: 81 mg Documented by: Atorvastatin Calcium (Atorvastatin 40 Mg Tab) 40 mg PO QHS [facility] [place] Carvedilol (Carvedilol 25 Mg Tab) 25 mg PO BID [facility] [place] Last Admin: 01/06/21 09:41 Dose: 25 mg Documented by: Clonidine HCl (Clonidine 0.1 Mg Tab) 0.1 mg PO Q12HR [facility] [place] Last Admin: 01/06/21 09:40 Dose: 0.1 mg Documented by: Famotidine (Famotidine 10 Mg Tab) 10 mg PO BID [facility] [place] Heparin Sodium (Porcine) (Heparin 5,000 Unit/1 Ml Vial) 5,000 unit SUB-Q Q12HR [facility] [place] Last Admin: 01/06/21 09:41 Dose: 5,000 unit Documented by: Hydralazine HCl (Hydralazine 20 Mg/1 Ml Inj) 10 mg IV Q2H PRN PRN Reason: Blood Pressure Last Admin: 01/06/21 07:38 Dose: 10 mg Documented by: Hydralazine HCl (Hydralazine 100 Mg Tab) 100 mg PO TID [facility] [place] Last Admin: 01/06/21 14:29 Dose: 100 mg Documented by: Hydromorphone HCl (Hydromorphone 1 Mg/1 Ml Inj) 0.5 mg IV Q3H PRN PRN Reason: Pain , Severe (7-10) Sodium Chloride (Nacl 0.9% 1000 Ml) 1,000 mls @ 100 mls/hr IV DIRECT [facility] [place] Insulin Human Isoph/Insulin Regular (Insulin Nph/Regular 70/30 Inj) 15 unit SUB-Q BIDDIAB [facility] [place] Insulin Human Lispro (Insulin Lispro 100 Unit/Ml) 0 unit SUB-Q ACHS [facility] [place]; Protocol Last Admin: 01/06/21 14:29 Dose: 8 unit Documented by: Isosorbide Dinitrate (Isosorbide Dinitrate 20 Mg Tab) 20 mg PO BID [facility] [place] Last Admin: 01/06/21 09:40 Dose: 20 mg Documented by: Metoclopramide HCl (Metoclopramide 10 Mg/2 Ml Inj) 5 mg IV Q6H PRN PRN Reason: Nausea And Vomiting Ondansetron HCl (Ondansetron 4 Mg/2 Ml Inj) 4 mg IV Q8H PRN PRN Reason: Nausea And Vomiting Oxycodone/Acetaminophen (Oxycodone /Acetaminophen 5-325mg Tab) 1 tab PO Q6H PRN PRN Reason: Pain, Moderate (4-6) Sodium Chloride (Sodium Chloride 0.9% 10 Ml Flush Syringe) 10 ml IV BID [facility] [place] Last Admin: 01/06/21 09:42 Dose: 10 ml Documented by: Sodium Chloride (Sodium Chloride 0.9% 10 Ml Flush Syringe) 10 ml IV PRN PRN PRN Reason: LINE FLUSH Review of Systems Constitutional: no weight loss, no weight gain, no fever Eyes: bilateral: blurred vision Ears, nose, mouth and throat: headache, no ear pain, no ear discharge, no tinnitis Cardiovascular: no chest pain, no orthopnea, no palpitations Respiratory: no cough, no cough with sputum, no shortness of breath, no dyspnea on exertion Gastrointestinal: no abdominal pain, no nausea, no vomiting, no diarrhea Musculoskeletal: no neck stiffness, no shooting arm pain Integumentary: no rash, no pruritis, no redness, no sores Neurological: no head injury, no transient paralysis, no paralysis, no weakness Psychiatric: no anxiety, no memory loss Endocrine: no cold intolerance, no heat intolerance Hematologic/Lymphatic: no easy bruising, no easy bleeding Physical Examination Vital Signs Temp Pulse Resp BP Pulse Ox 98.6 F 101 H 18 258/153 97 01/05/21 13:45 01/05/21 13:45 01/05/21 13:45 01/05/21 13:45 01/05/21 13:45 General appearance: no acute distress HEENT: Positive: PERRL Neck: Positive: trachea midline Cardiac: Positive: Reg Rate and Rhythm Lungs: Positive: clear to auscultation, Normal Breath Sounds Neuro: Positive: Grossly Intact Abdomen: Positive: Soft, Active Bowel Sounds Skin: Negative: Rash, Suspicious Lesions, Ulceration Extremities: Present: upper extr. pulses, lower extr. pulses. Absent: edema Results 01/05/21 15:22 01/06/21 04:16 Cardiac Enzymes 01/05/21 01/06/21 Range/Units 15:22 08:24 AST 27 (5-40) units/L CK-MB (CK-2) 4.2 H (0.0-4.0) ng/mL Coagulation 01/05/21 Range/Units 15:45 PT 12.7 (12.2-14.9) Sec. INR 0.90 (0.87-1.13) APTT 27.3 (24.2-36.6) Sec. Lipids 01/05/21 Range/Units 15:22 Triglycerides 289 H (2-149) mg/dL Cholesterol 155 (50-199) mg/dL HDL Cholesterol 40 (40-59) mg/dL Cholesterol/HDL Ratio 3.87 % CBC 01/05/21 Range/Units 15:22 WBC 5.7 (4.5-11.0) K/mm3 RBC 3.98 (3.65-5.03) M/mm3 Hgb 12.4 (11.8-15.2) gm/dl Hct 36.4 (35.5-45.6) % Plt Count 98 L (140-440) K/mm3 Lymph # (Auto) 1.2 (1.2-5.4) K/mm3 Comprehensive Metabolic Panel 01/05/21 01/06/21 Range/Units 15:22 04:16 Sodium 139 136 L (137-145) mmol/L Potassium 3.7 3.8 (3.6-5.0) mmol/L Chloride 102.1 99.5 (98-107) mmol/L Carbon Dioxide 23 25 (22-30) mmol/L BUN 20 21 H (9-20) mg/dL Creatinine 2.3 H 2.3 H (0.8-1.3) mg/dL Glucose 208 H 350 H (75-100) mg/dL Calcium 9.0 8.7 (8.4-10.2) mg/dL AST 27 (5-40) units/L ALT 25 (7-56) units/L Alkaline Phosphatase 66 (35-129) units/L Total Protein 6.4 (6.3-8.2) g/dL Albumin 3.5 L (3.9-5) g/dL - Imaging and Cardiology Echo: pending EKG: report reviewed, image reviewed EKG interpretations - Telemetry EKG Rhythm: Sinus Rhythm - EKG Sinus rhythms and dysrhythmias: sinus rhythm Repolarization changes or abnormalities: nonspecific abnormality, ST segment, and/or T wave Assessment and Plan NSTEMI type 2 HTN Emergency * EKG sinus 89 with no acute ischemic changes. Trop minimally elevated in setting of hypertensive emergency and BHAVANA 0.042. * Echo pending * Agree with Hydralizine 100mg TID, Isordil 20mg PO BID, clonidine 0.1mg PO BID, Coreg 25mg PO BID Blurred Vision * Neurology following * Per neuro recs BP< 150/80 BHAVANA * Nephrology consulted Plan: Continue current BP regimen. Echo pending. IVF for BHAVANA pending nephrology recs. Discussed importance of diet modification, weight loss, and medication compliance with patient Patient seen in conjunction with DR. El who agrees with this plan of care. Will continue to follow - Patient Problems (1) Diabetes Current Visit: Yes Status: Acute (2) Acute renal insufficiency Current Visit: Yes Status: Acute (3) DVT prophylaxis Current Visit: Yes Status: Acute (4) Elevated brain natriuretic peptide (BNP) level Current Visit: Yes Status: Acute (5) Hypertensive emergency Current Visit: Yes Status: Acute (6) Elevated troponin Current Visit: Yes Status: Chronic
--- NOTE | 2021-01-06 17:55 | Consultation ---
History of Present Illness - Reason for Consult Consult date: 01/06/21 acute renal failure - History of Present Illness This is a 35-year-old man with diabetes and hypertension who presented with uncontrolled blood pressure with headache and blurring of vision. He was noted to be in hypertensive emergency (260/160) in the ER and workup also revealed acute kidney injury and he was subsequently admitted for further workup. Nephrology was consulted for acute kidney injury. Patient says that he was first notified off renal dysfunction about 2 years ago but has not yet followed up with a laboratory veterinarian. He is unaware of his baseline kidney function. He denies family history of kidney disease. He denies NSAID use. He denies hematuria, dysuria and history of kidney stones. Past History Past Medical History: diabetes, hypertension Past Surgical History: No surgical history Social history: lives with family Family history: no significant family history Medications and Allergies Allergies Allergy/AdvReac Type Severity Reaction Status Date / Time IVP DYE Allergy Vomiting Uncoded 01/05/21 13:49 Home Medications Medication Instructions Recorded Confirmed Last Taken Type Aspirin [Aspirin BABY CHEW TAB] 81 mg PO QDAY 01/05/21 01/05/21 Unknown History Atorvastatin Calcium [Lipitor] 40 mg PO HS 01/05/21 01/05/21 Unknown History Furosemide [Lasix TAB] 40 mg PO QDAY 01/05/21 01/05/21 Unknown History Isosorbide Dinitrate [Isordil] 20 mg PO BID 01/05/21 01/05/21 Unknown History Losartan Potassium 12.5 mg PO DAILY 01/05/21 01/05/21 Unknown History Metformin HCl [metFORMIN ER 500 mg PO BID 01/05/21 01/05/21 Unknown History Osmotic] Proventil Hfa 90 mcg INHALATION Q6HR 01/05/21 01/05/21 Unknown History carvediloL 25 mg PO BID 01/05/21 01/05/21 Unknown History hydrALAZINE 100 mg PO TID 01/05/21 01/05/21 Unknown History Active Meds: Active Medications Acetaminophen (Acetaminophen 325 Mg Tab) 650 mg PO Q4H PRN PRN Reason: Pain MILD(1-3)/Fever >100.5/SAWANT Last Admin: 01/05/21 22:43 Dose: 650 mg Documented by: Albuterol (Albuterol 2.5 Mg/3 Ml Nebu) 2.5 mg IH Q6HR PRN PRN Reason: Shortness Of Breath Amlodipine Besylate (Amlodipine 10 Mg Tab) 10 mg PO QDAY [facility] Last Admin: 01/06/21 09:41 Dose: 10 mg Documented by: Aspirin (Aspirin 81 Mg Tab Chew) 81 mg PO QDAY [facility] Last Admin: 01/06/21 09:40 Dose: 81 mg Documented by: Atorvastatin Calcium (Atorvastatin 40 Mg Tab) 40 mg PO QHS [facility] Carvedilol (Carvedilol 25 Mg Tab) 25 mg PO BID [facility] Last Admin: 01/06/21 09:41 Dose: 25 mg Documented by: Clonidine HCl (Clonidine 0.1 Mg Tab) 0.1 mg PO Q12HR [facility] Last Admin: 01/06/21 09:40 Dose: 0.1 mg Documented by: Famotidine (Famotidine 10 Mg Tab) 10 mg PO BID [facility] Heparin Sodium (Porcine) (Heparin 5,000 Unit/1 Ml Vial) 5,000 unit SUB-Q Q12HR [facility] Last Admin: 01/06/21 09:41 Dose: 5,000 unit Documented by: Hydralazine HCl (Hydralazine 20 Mg/1 Ml Inj) 10 mg IV Q2H PRN PRN Reason: Blood Pressure Last Admin: 01/06/21 07:38 Dose: 10 mg Documented by: Hydralazine HCl (Hydralazine 100 Mg Tab) 100 mg PO TID [facility] Last Admin: 01/06/21 14:29 Dose: 100 mg Documented by: Hydromorphone HCl (Hydromorphone 1 Mg/1 Ml Inj) 0.5 mg IV Q3H PRN PRN Reason: Pain , Severe (7-10) Sodium Chloride (Nacl 0.9% 1000 Ml) 1,000 mls @ 100 mls/hr IV DIRECT [facility] Insulin Human Isoph/Insulin Regular (Insulin Nph/Regular 70/30 Inj) 15 unit SUB-Q BIDDIAB [facility] Insulin Human Lispro (Insulin Lispro 100 Unit/Ml) 0 unit SUB-Q ACHS [facility]; Protocol Last Admin: 01/06/21 14:29 Dose: 8 unit Documented by: Isosorbide Dinitrate (Isosorbide Dinitrate 20 Mg Tab) 20 mg PO BID [facility] Last Admin: 01/06/21 09:40 Dose: 20 mg Documented by: Metoclopramide HCl (Metoclopramide 10 Mg/2 Ml Inj) 5 mg IV Q6H PRN PRN Reason: Nausea And Vomiting Ondansetron HCl (Ondansetron 4 Mg/2 Ml Inj) 4 mg IV Q8H PRN PRN Reason: Nausea And Vomiting Oxycodone/Acetaminophen (Oxycodone /Acetaminophen 5-325mg Tab) 1 tab PO Q6H PRN PRN Reason: Pain, Moderate (4-6) Sodium Chloride (Sodium Chloride 0.9% 10 Ml Flush Syringe) 10 ml IV BID [facility] Last Admin: 01/06/21 09:42 Dose: 10 ml Documented by: Sodium Chloride (Sodium Chloride 0.9% 10 Ml Flush Syringe) 10 ml IV PRN PRN PRN Reason: LINE FLUSH Review of Systems Constitutional: no fever, no chills Ears, nose, mouth and throat: no nasal congestion, no nasal discharge Cardiovascular: no chest pain, no orthopnea Respiratory: no cough, no shortness of breath Gastrointestinal: no nausea, no vomiting Genitourinary Male: no dysuria, no hematuria Musculoskeletal: no muscle weakness, no muscle cramps Integumentary: no rash, no pruritis Neurological: syncope, headaches Psychiatric: no anxiety, no paranoia Endocrine: no excessive sweating, no flushing Hematologic/Lymphatic: no easy bruising, no easy bleeding Exam - Vital Signs Vital signs: Vital Signs Temp Pulse Resp BP Pulse Ox 98.6 F 101 H 18 258/153 97 01/05/21 13:45 01/05/21 13:45 01/05/21 13:45 01/05/21 13:45 01/05/21 13:45 Results - Lab Results 01/05/21 15:22 01/06/21 04:16 Most recent lab results Calcium 8.7 mg/dL (8.4-10.2) 01/06/21 04:16 Assessment and Plan Assessment Acute kidney injury, unknown baseline Hypertensive emergency Morbid obesity Diabetes Recommendations Check urinalysis Check UPCR Check renal ultrasound Renally dose medications Avoid nephrotoxins Renal diet Strict glucose control Antihypertensive control - monitor trend and assess need for further titration of regimen
[2021-01-06] MEDS: INSULIN NPH/REGULAR 70/30 INJ SUB-Q SCH (18:12)
[2021-01-06] MEDS: SODIUM CHLORIDE 0.9% 1000 ML 1,000 ML IV SCH (18:13)
[2021-01-06 20:01] LABS: Creatine Kinase MB 4.7 ng/mL (0.0-4.0)
[2021-01-06] MEDS: FAMOTIDINE 10 MG TAB PO SCH (21:04)
[2021-01-06 21:40] LABS: Bilirubin,Urine NEG (Negative); Blood,Urine SM (Negative); Color,Urine Yellow (Yellow); Urobilinogen,Urine < 2.0 mg/dL (<2.0)
[2021-01-06 21:41] LABS: Protein,Urine >500 mg/dL (Negative)
[2021-01-06 21:48] LABS: Creatinine,Urine 71.2 mg/dL (0.1-20.0)
[2021-01-06] MEDS ORDERED: NON-FORMULARY EACH (Atorvastatin Calcium [Lipitor] 80 MG Tablet) PO SCH (22:00)
[2021-01-06 22:42] LABS: Microalbumin/Creatinine Ratio 6113.7 ug/mg; Protein/Creatinine Ratio,Urine 9.03
[2021-01-07 00:40] LABS: Creatine Kinase MB 3.6 ng/mL (0.0-4.0)
[2021-01-07 02:55] LABS: Calcium 9.2 mg/dL (8.4-10.2)
[2021-01-07] MEDS: SODIUM CHLORIDE 0.9% 1000 ML 1,000 ML IV SCH (05:41)
[2021-01-07] MEDS: hydrALAZINE 20 MG/1 ML INJ IV PRN ×2 (05:42→08:11)
[2021-01-07] MEDS: hydrALAZINE 100 MG TAB PO SCH ×3 (08:17→22:52)
[2021-01-07] MEDS: INSULIN LISPRO 100 UNIT/ML SUB-Q SCH ×4 (08:17→22:54)
[2021-01-07] MEDS: INSULIN NPH/REGULAR 70/30 INJ SUB-Q SCH ×2 (08:17→18:18)
--- NOTE | 2021-01-07 08:44 | Electrocardiograph Report ---
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
[2021-01-07] MEDS ORDERED: cloNIDine 0.1 MG TAB PO SCH (10:00)
[2021-01-07] MEDS: FAMOTIDINE 10 MG TAB PO SCH ×2 (10:20→22:52)
[2021-01-07] MEDS: carvediloL 25 MG TAB PO SCH ×2 (10:20→22:52)
[2021-01-07] MEDS: ISOSORBIDE DINITRATE 20 MG TAB PO SCH ×2 (10:21→22:52)
[2021-01-07] MEDS: amLODIPine 10 MG TAB PO SCH (10:21)
[2021-01-07] MEDS: ASPIRIN 81 MG TAB CHEW PO SCH (10:21)
[2021-01-07] MEDS: HEPARIN 5,000 UNIT/1 ML VIAL SUB-Q SCH ×2 (10:30→22:53)
--- NOTE | 2021-01-07 10:31 | Progress Note ---
Assessment and Plan Assessment and plan: -- Hypertensive emergency; present on admission Current Visit: Yes Status: Acute Continue multiple antihypertensives patient is on As needed hydralazine Closely monitor blood pressures and adjust as needed --Blurred vision /probably secondary to hypertensive emergency Rule out TIA (transient ischemic attack) Current Visit: Yes Status: Acute Symptoms due to hypertensive emergency Now resolved ,CT head without contrast no acute abnormality Neurology evaluation noted and appreciated Unable to get MRI due to obesity --Elevated brain natriuretic peptide (BNP) level Current Visit: Yes Status: Acute Echo EF 40 to 45%, unable to give Lasix due to acute kidney injury Closely monitor --BHAVANA (acute kidney injury) Current Visit: Yes Status: Acute Worsening renal function Vasomotor nephropathy , closely monitor renal function Avoid nephrotoxin , renal ultrasound Nephrology following -- Elevated troponin /NSTEMI 2 Current Visit: Yes Status: Acute Probably nonspecific Hypertensive cardiomyopathy Cardiology evaluation noted and appreciated Possible stress test tomorrow -Uncontrolled type 2 diabetes mellitus; Current Visit: Yes Status: Chronic Probably noncompliance with medications Accu-Chek sliding scale coverage ADA diet Long-acting insulin Novolin 70/30 15 units twice a day HbA1c 8.9, diabetic education nutrition consult --Dyslipidemia; Current Visit: Yes Status: Chronic Low-cholesterol diet, statin Rigorous exercise as tolerated --morbid obesity; BMI 51.5; Current Visit: Yes Status: Chronic Patient needs diet modification lifestyle changes exercise as tolerated and weight reduction when medically stable Patient also need outpatient pulmonary evaluation for sleep study to rule out obstructive sleep apnea --medical noncompliance/social issues; Current Visit: Yes Status: Chronic Case management to assist with social issues --DVT prophylaxis Current Visit: Yes Status: Acute On heparin and GI prophylaxis We will closely monitor patient and adjust management as needed Plan of care reviewed with the patient and his nurse Anesthesia Associate recommendations noted and appreciate Also discussed with case management Brief history and daily hospital course 35-year-old -[place] male with history of hypertension and diabetes and hyperlipidemia was admitted through emergency room on 01/05/2021 with the complaints of blurred vision. In the emergency room patient blood pressure was 260/160. Patient was initiated on Cardene drip. CT head without contrast negative for acute abnormality, patient was evaluated by cardiology and neurology, neurology recommended MRI brain, unable to do due to morbid obesity. Patient was also evaluated by pot press operator for his acute kidney injury, renal function closely monitored nephrotoxins avoided, nephrology following. As the blood pressures improved patient symptoms improved. Patient has no resources and multiple social issues, case management assisting with discharge planning when he is medically stable. 01/06/2021; Patient's blood pressures still remain uncontrolled Added new medications and adjusted the dosages CT head without contrast no acute abnormality Neurology recommended MRI brain 01/07/2021; due to obesity unable to do MRI at this facility Outpatient MRI when patient is medically stable Intermittent high blood pressures, DC amlodipine and added nifedipine XL twice a day 30 mg Closely monitor blood pressures and adjust as needed Patient has multiple social issues DC planning per case management when medically stable History Interval history: Seen and examined the patient at the bedside Patient's chart and medications reviewed Patient feels slightly better still has uncontrolled blood pressures Morbidly obese, unable to do MRI due to overweight Vital signs noted For she has no new complaints Hospitalist Physical - Constitutional Vitals: Temp Pulse Resp BP Pulse Ox 98.9 F 104 H 18 197/137 96 01/06/21 19:20 01/06/21 19:20 01/07/21 07:51 01/06/21 21:05 01/07/21 07:51 General appearance: Present: no acute distress, well-nourished, obese (Morbidly obese) - EENT Eyes: Present: PERRL, EOM intact - Neck Neck: Present: supple, normal ROM - Respiratory Respiratory effort: normal Respiratory: bilateral: diminished, rhonchi, negative: rales, wheezing - Cardiovascular Rhythm: regular Heart Sounds: Present: S1 & S2 - Extremities Extremities: no ischemia, No edema - Abdominal General gastrointestinal: soft, non-tender, non-distended, normal bowel sounds - Integumentary Integumentary: Present: clear, warm - Psychiatric Psychiatric: appropriate mood/affect, cooperative - Neurologic Neurologic: CNII-XII intact, moves all extremities HEART Score - HEART Score Risk factors: 1-2 risk factors Troponin: Troponin T 0.041 ng/mL (0.00-0.029) H 01/06/21 23:23 Troponin: < normal limit - Critical Actions Critical Actions: 0-3 pts:0.9-1.7%risk of adverse cardiac event.Candidate for discharge Results - Labs CBC & Chem 7: 01/05/21 15:22 01/07/21 02:15 Labs: Laboratory Last Values WBC 5.7 K/mm3 (4.5-11.0) 01/05/21 15: RBC 3.98 M/mm3 (3.65-5.03) 01/05/21 15:22 Hgb 12.4 gm/dl (11.8-15.2) 01/05/21 15:22 Hct 36.4 % (35.5-45.6) 01/05/21 15: MCV 92 fl (84-94) 01/05/21 15: MCH 31 pg (28-32) 01/05/21 15:22 MCHC 34 % (32-34) 01/05/21 15:22 RDW 14.3 % (13.2-15.2) 01/05/21 15: Plt Count 98 K/mm3 (140-440) L 01/05/21 15:22 Lymph % (Auto) 21.5 % (13.4-35.0) 01/05/21 15: [place] % (Auto) 9.2 % (0.0-7.3) H 01/05/21 15:22 Eos % (Auto) 2.8 % (0.0-4.3) 01/05/21 15: Baso % (Auto) 0.2 % (0.0-1.8) 01/05/21: Lymph # (Auto) 1.2 K/mm3 (1.2-5.4) 01/05/21:22 [place] # (Auto) 0.5 K/mm3 (0.0-0.8) 01/05/21: Eos # (Auto) 0.2 K/mm3 (0.0-0.4) 01/05/21 15:22 Baso # (Auto) 0.0 K/mm3 (0.0-0.1) 01/05/21: Seg Neutrophils % 66.3 % (40.0-70.0) 01/05/21: Seg Neutrophils # 3.8 K/mm3 (1.8-7.7) 01/05/21 15:22 PT 12.7 Sec. (12.2-14.9) 01/05/21 15:45 INR 0.90 (0.87-1.13) 01/05/21 15:45 APTT 27.3 Sec. (24.2-36.6) 01/05/21 15:45 Thrombin Time 19.0 Sec. (15.1-19.6) 01/05/21 15:45 Sodium 148 mmol/L (137-145) H D 01/07/21 02:15 Potassium 3.7 mmol/L (3.6-5.0) 01/07/21 02:15 Chloride 110.2 mmol/L (98-107) H 01/07/21 02:15 Carbon Dioxide 20 mmol/L (22-30) L 01/07/21 02:15 Anion Gap 22 mmol/L 01/07/21 02:15 BUN 28 mg/dL (9-20) H 01/07/21 02:15 Creatinine 2.8 mg/dL (0.8-1.3) H 01/07/21 02:15 Estimated GFR 26 ml/min 01/07/21 02:15 BUN/Creatinine Ratio 10 % 01/07/21 02:15 Glucose 208 mg/dL (75-100) H 01/07/21 02:15 POC Glucose 217 mg/dL (70-105) H 01/07/21 07:51 Hemoglobin A1c 8.9 % (4-6) H 01/06/21 19:25 Calcium 9.2 mg/dL (8.4-10.2) 01/07/21 02:15 Magnesium 2.50 mg/dL (1.7-2.3) H 01/07/21 02:15 Total Bilirubin 1.20 mg/dL (0.1-1.2) 01/05/21 15:22 AST 27 units/L (5-40) 01/05/21 15:22 ALT 25 units/L (7-56) 01/05/21 15:22 Alkaline Phosphatase 66 units/L (35-129) 01/05/21 15:22 Total Creatine Kinase 339 units/L (55-170) H 01/06/21 23:23 CK-MB (CK-2) 3.6 ng/mL (0.0-4.0) 01/06/21 23:23 CK-MB (CK-2) Rel Index 1.0 (0-4) 01/06/21 23:23 Troponin T 0.041 ng/mL (0.00-0.029) H 01/06/21 23:23 NT-Pro-B Natriuret Pep 2727 pg/mL (0-450) H 01/05/21 15: Total Protein 6.4 g/dL (6.3-8.2) 01/05/21 15: Albumin 3.5 g/dL (3.9-5) L 01/05/21 15: Albumin/Globulin Ratio 1.2 % 01/05/21 15: Triglycerides 289 mg/dL (2-149) H 01/05/21 15: Cholesterol 155 mg/dL (50-199) 01/05/21 15: LDL Cholesterol Direct 77 mg/dL (50-130) 01/05/21: HDL Cholesterol 40 mg/dL (40-59) 01/05/21: Cholesterol/HDL Ratio 3.87 % 01/05/21 15: Urine Color Yellow (Yellow) 01/06/21 21:00 Urine Turbidity Clear (Clear) 01/06/21 21:00 Urine pH 6.0 (5.0-7.0) 01/06/21 21:00 Ur Specific Altha 1.014 (1.003-1.030) 01/06/21 21:00 Urine Protein >500 mg/dL (Negative) 01/06/21 21:00 Urine Glucose (UA) >=500 mg/dL (Negative) 01/06/21 21:00 Urine Ketones Neg mg/dL (Negative) 01/06/21 21:00 Urine Blood Sm (Negative) 01/06/21 21:00 Urine Nitrite Neg (Negative) 01/06/21 21:00 Urine Bilirubin Neg (Negative) 01/06/21 21:00 Urine Urobilinogen < 2.0 mg/dL (<2.0) 01/06/21 21:00 Ur Leukocyte Esterase Neg (Negative) 01/06/21 21:00 Urine WBC (Auto) 2.0 /HPF (0.0-6.0) 01/06/21 21:00 Urine RBC (Auto) 2.0 /HPF (0.0-6.0) 01/06/21 21:00 Urine Creatinine 71.2 mg/dL (0.1-20.0) H 01/06/21 21:00 Urine Microalbumin 435.3 mg/dL (0.1-34.0) H 01/06/21 21:00 Microalb/Creat Ratio 6113.7 ug/mg 01/06/21 21:00 Protein/Creatinin Ratio 9.03 01/06/21 21:00 Urine Total Protein 643 mg/dL (5-11.8) H 01/06/21 21:00 Urine Opiates Screen Negative 01/05/21 17:32 Urine Methadone Screen Negative 01/05/21 17:32 Ur Barbiturates Screen Negative 01/05/21 17:32 Ur Phencyclidine Scrn Negative 01/05/21 17:32 Ur Amphetamines Screen Negative 01/05/21 17:32 U Benzodiazepines Scrn Negative 01/05/21 17:32 Urine Cocaine Screen Negative 01/05/21 17:32 U Marijuana (THC) Screen Negative 01/05/21 17:32 Drugs of Abuse Note Disclamer 01/05/21 17:32 Evans/IV: Voiding Method Toilet Active Medications - Current Medications Current Medications: Generic Name Dose Route Start Last Admin Trade Name Freq PRN Reason Stop Dose Admin Acetaminophen 650 mg 01/05/21 23:00 01/05/21 22:43 Acetaminophen 325 Mg Tab PO 650 mg Q4H PRN Administration Pain MILD(1-3)/Fever >100.5/SAWANT Albuterol 2.5 mg 01/06/21 12:00 Albuterol 2.5 Mg/3 Ml Nebu IH Q6HR PRN Shortness Of Breath Amlodipine Besylate 10 mg 01/06/21 10:00 01/07/21 10:21 Amlodipine 10 Mg Tab PO 10 mg QDAY KAREN Administration Aspirin 81 mg 01/06/21 10:00 01/07/21 10:21 Aspirin 81 Mg Tab Chew PO 81 mg QDAY KAREN Administration Atorvastatin Calcium 40 mg 01/06/21 22:00 01/06/21 21:06 Atorvastatin 40 Mg Tab PO 40 mg QHS KAREN Administration Carvedilol 25 mg 01/05/21 23:00 01/07/21 10:20 Carvedilol 25 Mg Tab PO 25 mg BID KAREN Administration Clonidine HCl 0.2 mg 01/07/21 10:00 01/07/21 10:21 Clonidine 0.1 Mg Tab PO 0.2 mg Q12HR KAREN Administration Famotidine 10 mg 01/06/21 22:00 01/07/21 10:20 Famotidine 10 Mg Tab PO 10 mg BID KAREN Administration Heparin Sodium (Porcine) 5,000 unit 01/06/21 10:00 01/06/21 21:06 Heparin 5,000 Unit/1 Ml Vial SUB-Q 5,000 unit Q12HR KAREN Administration Hydralazine HCl 10 mg 01/05/21 23:00 01/07/21 08:11 Hydralazine 20 Mg/1 Ml Inj IV 10 mg Q2H PRN Administration Blood Pressure Hydralazine HCl 100 mg 01/06/21 08:00 01/07/21 08:17 Hydralazine 100 Mg Tab PO 100 mg TID KAREN Administration Hydromorphone HCl 0.5 mg 01/05/21 23:00 Hydromorphone 1 Mg/1 Ml Inj IV Q3H PRN Pain , Severe (7-10) Lactated Ringer's 1,000 mls @ 100 mls/hr 01/07/21 10:00 Lactated Ringers IV 01/08/21 19:59 DIRECT KAREN Insulin Human Isoph/Insulin Regular 15 unit 01/06/21 17:00 01/07/21 08:17 Insulin Nph/Regular 70/30 Inj SUB-Q 15 unit BIDDIAB KAREN Administration Insulin Human Lispro 0 unit 01/06/21 07:30 01/07/21 08:17 Insulin Lispro 100 Unit/Ml SUB-Q 4 unit ACHS KAREN Administration Protocol Isosorbide Dinitrate 20 mg 01/05/21 23:00 01/07/21 10:21 Isosorbide Dinitrate 20 Mg Tab PO 20 mg BID KAREN Administration Metoclopramide HCl 5 mg 01/06/21 12:00 Metoclopramide 10 Mg/2 Ml Inj IV Q6H PRN Nausea And Vomiting Ondansetron HCl 4 mg 01/05/21 23:00 Ondansetron 4 Mg/2 Ml Inj IV Q8H PRN Nausea And Vomiting Oxycodone/Acetaminophen 1 tab 01/05/21 23:00 Oxycodone /Acetaminophen 5-325mg Tab PO Q6H PRN Pain, Moderate (4-6) Sodium Chloride 10 ml 01/06/21 10:00 01/06/21 21:06 Sodium Chloride 0.9% 10 Ml Flush Syringe IV 10 ml BID KAREN Administration Sodium Chloride 10 ml 01/05/21 23:00 Sodium Chloride 0.9% 10 Ml Flush Syringe IV PRN PRN LINE FLUSH
--- NOTE | 2021-01-07 11:15 | Progress Note ---
Assessment and Plan Assessment and Plan Advance Directives: Yes (Full code) VTE prophylaxis?: Chemical Plan of care discussed with patient/family: Yes - Patient Problems # Hypertensive emergency Patient was initiated on Cardene drip Patient was given his home medications Losartan was discontinued and started on valsartan 160 every 12 Patient blood pressure came down to reasonable readings of 145/95 in the emergency room Patient was downgraded from ICU admission to telemetry admission # blurred vison with no weakness -NIH#0 -finding is mostly related to above -PRESS can not be excluded -No sign to suggest CVA/TIA -MRI brain could not do due to size #Elevated brain natriuretic peptide (BNP) level -Echocardiogram Ef#40-45% bubble is negative # BHAVANA (acute kidney injury) -BHAVANA possibly superimposed on CKD given his longstanding hypertension -Nephrology consult requested -Creat#2.8 # Elevated troponin -Probable troponin leak -Cardiology consult -Repeat troponins and CK levels # Possible underlying sleep apnea -weight loss -sleep study -check TSH # DVT prophylaxis -On heparin and GI prophylaxis PLAN 1- BP<150/80 2-Close monitering of BP at home 3-weight loss 4- MRI brain unable to do ? consider Open MRI !!!! 5- ASA 81 mg and Lipitor 40 mg 6- LDL#77 7- will repeat Brain CT for now 8- CTA is not an option due to Creatinine is #2.8 will follow as needed Subjective Date of service: 01/07/21 Principal diagnosis: blurred vision Interval history: doing well BP is up again Systolic>220 today could not have MRI due to size CTA is not an option due to kidney function worsening Objective - Vital Sign Vital Signs - 12hr 01/07/21 07:51 Respiratory 18 Rate O2 Sat by Pulse 96 Oximetry - General Apperance Constitutional: comfortable - EENT EENT: PERRL, mucous membranes moist - Respiratory Respiratory: lungs clear, rhonchi - Cardiovascular Cardiovascular: regular rate, normal S1, normal S2 Extremities: no peripheral edema bilat, no clubbing, cyanosis - Gastrointestinal Gastrointestinal: normoactive bowel sounds - Integumentary Integumentary: normal - Neurologic Cranial nerve examination: PERRL, EOMI, intact Speech examination: intact Detailed motor examination: grossly full strength in - Laboratory Findings CBC and BMP: 01/05/21 15:22 01/07/21 02:15 Abnormal Lab Findings: Abnormal Labs 01/05/21 01/05/21 01/06/21 15:22 15:22 04:16 Plt Count 98 L [place] % (Auto) 9.2 H Sodium 136 L Chloride Carbon Dioxide BUN 21 H Creatinine 2.3 H 2.3 H Glucose 208 H 350 H POC Glucose Hemoglobin A1c Magnesium Total Creatine Kinase CK-MB (CK-2) Troponin T 0.042 H NT-Pro-B Natriuret Pep 2727 H Albumin 3.5 L Triglycerides 289 H Urine Creatinine Urine Microalbumin Urine Total Protein 01/06/21 01/06/21 01/06/21 08:24 08:54 11:59 Plt Count [place] % (Auto) Sodium Chloride Carbon Dioxide BUN Creatinine Glucose POC Glucose 321 H 320 H Hemoglobin A1c Magnesium Total Creatine Kinase 363 H CK-MB (CK-2) 4.2 H Troponin T 0.039 H NT-Pro-B Natriuret Pep Albumin Triglycerides Urine Creatinine Urine Microalbumin Urine Total Protein 01/06/21 01/06/21 01/06/21 16:48 19:25 19:25 Plt Count [place] % (Auto) Sodium Chloride Carbon Dioxide BUN Creatinine Glucose POC Glucose 252 H Hemoglobin A1c 8.9 H Magnesium Total Creatine Kinase 440 H CK-MB (CK-2) 4.7 H Troponin T 0.040 H NT-Pro-B Natriuret Pep Albumin Triglycerides Urine Creatinine Urine Microalbumin Urine Total Protein 01/06/21 01/06/21 01/06/21 21:00 22:03 23:23 Plt Count [place] % (Auto) Sodium Chloride Carbon Dioxide BUN Creatinine Glucose POC Glucose 185 H Hemoglobin A1c Magnesium Total Creatine Kinase 339 H CK-MB (CK-2) Troponin T 0.041 H NT-Pro-B Natriuret Pep Albumin Triglycerides Urine Creatinine 71.2 H Urine Microalbumin 435.3 H Urine Total Protein 643 H 01/07/21 01/07/21 02:15 07:51 Plt Count [place] % (Auto) Sodium 148 H D Chloride 110.2 H Carbon Dioxide 20 L BUN 28 H Creatinine 2.8 H Glucose 208 H POC Glucose 217 H Hemoglobin A1c Magnesium 2.50 H Total Creatine Kinase CK-MB (CK-2) Troponin T NT-Pro-B Natriuret Pep Albumin Triglycerides Urine Creatinine Urine Microalbumin Urine Total Protein
--- NOTE | 2021-01-07 12:52 | Progress Note ---
Assessment and Plan NSTEMI type 2 HTN Emergency HFrEF * EKG sinus 89 with no acute ischemic changes. Trop minimally elevated in setting of hypertensive emergency and BHAVANA 0.042. * Echo 01/06/2021-EF 40 to 45%, mild concentric left ventricular hypertrophy, right ventricle not well visualized, left and right atrium normal in size saline bubble study does not demonstrate PFO. * Currently on: Hydralizine 100mg TID, Isordil 20mg PO BID, clonidine 0.1mg PO BID, Coreg 25mg PO BID Blurred Vision * Neurology following * Per neuro recs BP< 150/80 BHAVANA * Nephrology following Plan: Patient BP remains elevated SBP>200. Increased clonidine 0.2mg PO TID. Continue to hold STELLA/ARB and other neprotoxic agents in setting of BHAVANA. Patient seen in conjunction with Dr. El who agrees with this plan of care. Will continue to follow - Patient Problems (1) Diabetes Current Visit: Yes Status: Acute (2) Acute renal insufficiency Current Visit: Yes Status: Acute (3) DVT prophylaxis Current Visit: Yes Status: Acute (4) Elevated brain natriuretic peptide (BNP) level Current Visit: Yes Status: Acute (5) Hypertensive emergency Current Visit: Yes Status: Acute (6) Elevated troponin Current Visit: Yes Status: Chronic Subjective Date of service: 01/07/21 Principal diagnosis: blurred vision, hypertensive emergency, BHAVANA Interval history: Patient sitting on side of bed reports headache.Continues to report blurred vision Patient 89 on monitor with no events Objective Vital Signs Temp Pulse Resp BP Pulse Ox 01/07/21 11:50 98.6 F 90 20 138/84 96 01/07/21 07:56 98.2 F 100 H 20 231/137 96 01/07/21 07:51 18 96 01/07/21 04:03 98.9 F 90 19 218/131 92 01/06/21 23:22 98.6 F 89 20 130/79 95 01/06/21 22:03 96 01/06/21 22:00 18 96 01/06/21 21:05 197/137 01/06/21 19:20 98.9 F 104 H 20 197/137 96 01/06/21 16:54 97.8 F 88 20 162/97 96 01/06/21 16:30 18 97 - Physical Examination General: No Apparent Distress HEENT: Positive: PERRL Neck: Positive: trachea midline Cardiac: Positive: Reg Rate and Rhythm Lungs: Positive: Normal Breath Sounds Neuro: Positive: Grossly Intact Abdomen: Positive: Soft, Active Bowel Sounds Skin: Negative: Rash, Suspicious Lesions, Ulceration Extremities: Present: upper extr. pulses, lower extr. pulses. Absent: edema - Labs and Meds Cardiac Enzymes 01/06/21 01/06/21 Range/Units 19:25 23:23 CK-MB (CK-2) 4.7 H 3.6 (0.0-4.0) ng/mL Comprehensive Metabolic Panel 01/07/21 Range/Units 02:15 Sodium 148 H D (137-145) mmol/L Potassium 3.7 (3.6-5.0) mmol/L Chloride 110.2 H (98-107) mmol/L Carbon Dioxide 20 L (22-30) mmol/L BUN 28 H (9-20) mg/dL Creatinine 2.8 H (0.8-1.3) mg/dL Glucose 208 H (75-100) mg/dL Calcium 9.2 (8.4-10.2) mg/dL - Imaging and Cardiology EKG: report reviewed, image reviewed Echo: report reviewed - Telemetry EKG Rhythm: Sinus Rhythm - EKG Sinus rhythms and dysrhythmias: sinus rhythm Repolarization changes or abnormalities: nonspecific abnormality, ST segment, and/or T wave
--- NOTE | 2021-01-07 12:59 | Cat Scan Report ---
CT head/brain wo con INDICATION: blurred vison , mri could not be done. TECHNIQUE: All CT scans at this location are performed using CT dose reduction for ALARA by means of automated e xposure control. COMPARISON: Prior head CT on 01/05/2021 FINDINGS: There is no evidence of hemorrhage, hydrocephalus, brain edema, or mass effect/mass lesion. There is overall normal brain formation and brain volume for the patient's age. Ventricular and cisternal/sulc al size is normal for age. The included paranasal sinuses and mastoid air cells are clear. The orbits appear unremarkable. IMPRESSION: 1. No acute intracranial abnormality or adverse change from the prior study. Signer Name: Galo Barraza MD Signed: 01/07/2021 12:54 PM Workstation Name: [id number]
[2021-01-07] MEDS: LACTATED RINGERS 1,000 ML IV SCH (13:00)
--- NOTE | 2021-01-07 14:33 | Ultrasound Report ---
ULTRASOUND RENAL INDICATION / CLINICAL INFORMATION: BHAVANA. COMPARISON: None available. FINDINGS: Technically limited exam due to patient body habitus. RIGHT KIDNEY: Length = 12.6 cm. - Echogenicity: Normal. - Cortical Thickness: Normal. - Hydronephrosis: None. - Cyst / Mass: None. - Stones: None seen. LEFT KIDNEY: Length = 14.0 cm. - Echogenicity: Normal. - Cortical Thickness: Normal. - Hydronephrosis: None. - Cyst / Mass: None. - Stones: None seen. URINARY BLADDER: No significant abnormality. FREE FLUID: None. ADDITIONAL FINDINGS: None. IMPRESSION: 1. Technically limited exam due to patient body habitus. No significant abnormality identified. Scribed by: Kymberly Leon RDMS, RVT Scribed: 01/07/2021 1:26 PM I have reviewed the images, agree with this report, and edited this report as needed. Signer Name: Paddy Pinedo MD Signed: 01/07/2021 2:29 PM Workstation Name: [email or web address]
[2021-01-07] MEDS: cloNIDine 0.2 MG TAB PO SCH ×2 (15:08→22:52)
--- NOTE | 2021-01-07 16:08 | Progress Note ---
Assessment and Plan Assessment Acute kidney injury, unknown baseline. Renal ultrasound unremarkable. Hypertensive emergency Nephrotic range proteinuria Morbid obesity Diabetes Recommendations F/u serologies Avoid large fluctuations in bp Keep bp < 130/80 Renally dose medications Avoid nephrotoxins Renal diet Strict glucose control Subjective Date of service: 01/07/21 Principal diagnosis: blurred vision, hypertensive emergency, BHAVANA Interval history: Patient was seen for his renal issues Nursing, interdisciplinary and consult notes were reviewed Vitals, input and output, medications and labs were reviewed Sitting up in bed, blood pressure fluctuating Objective - Exam Narrative Exam: General: No acute distress HEENT: Oral mucosa moist Neck: Supple, no JVD Chest: Clear to auscultation bilaterally Heart: RRR, S1 and S2, no pericardial rub Abdomen: Soft, nontender, no renal bruit Extremity: No peripheral cyanosis, edema Neurological: Alert, awake, no asterixis Dermatology: No skin rash Psych: No agitation Musculoskeletal: No joint effusion - Vital Signs Vital signs: Vital Signs - 12hr 01/07/21 01/07/21 01/07/21 07:51 07:56 11:50 Temperature 98.2 F 98.6 F Pulse Rate 100 H 90 Respiratory 18 20 20 Rate Blood Pressure 231/137 138/84 O2 Sat by Pulse 96 96 96 Oximetry - Lab 01/05/21 15:22 01/07/21 02:15 Most recent lab results Calcium 9.2 mg/dL (8.4-10.2) 01/07/21 02:15 Magnesium 2.50 mg/dL (1.7-2.3) H 01/07/21 02:15 Urine Creatinine 71.2 mg/dL (0.1-20.0) H 01/06/21 21:00 Urine Total Protein 643 mg/dL (5-11.8) H 01/06/21 21:00 Medications & Allergies - Medications Allergies/Adverse Reactions: Allergies IVP DYE Allergy (Uncoded 01/05/21 13:49) Vomiting Home Medications: Home Medications Medication Instructions Recorded Confirmed Last Taken Type Aspirin [Aspirin BABY CHEW TAB] 81 mg PO QDAY 01/05/21 01/05/21 Unknown History Atorvastatin Calcium [Lipitor] 40 mg PO HS 01/05/21 01/05/21 Unknown History Furosemide [Lasix TAB] 40 mg PO QDAY 01/05/21 01/05/21 Unknown History Isosorbide Dinitrate [Isordil] 20 mg PO BID 01/05/21 01/05/21 Unknown History Losartan Potassium 12.5 mg PO DAILY 01/05/21 01/05/21 Unknown History Metformin HCl [metFORMIN ER 500 mg PO BID 01/05/21 01/05/21 Unknown History Osmotic] Proventil Hfa 90 mcg INHALATION Q6HR 01/05/21 01/05/21 Unknown History carvediloL 25 mg PO BID 01/05/21 01/05/21 Unknown History hydrALAZINE 100 mg PO TID 01/05/21 01/05/21 Unknown History Active Medications: Generic Name Dose Route Start Last Admin Trade Name Freq PRN Reason Stop Dose Admin Acetaminophen 650 mg 01/05/21 23:00 01/05/21 22:43 Acetaminophen 325 Mg Tab PO 650 mg Q4H PRN Administration Pain MILD(1-3)/Fever >100.5/SAWANT Albuterol 2.5 mg 01/06/21 12:00 Albuterol 2.5 Mg/3 Ml Nebu IH Q6HR PRN Shortness Of Breath Amlodipine Besylate 10 mg 01/06/21 10:00 01/07/21 10:21 Amlodipine 10 Mg Tab PO 10 mg QDAY KAREN Administration Aspirin 81 mg 01/06/21 10:00 01/07/21 10:21 Aspirin 81 Mg Tab Chew PO 81 mg QDAY KAREN Administration Atorvastatin Calcium 40 mg 01/06/21 22:00 01/06/21 21:06 Atorvastatin 40 Mg Tab PO 40 mg QHS KAREN Administration Carvedilol 25 mg 01/05/21 23:00 01/07/21 10:20 Carvedilol 25 Mg Tab PO 25 mg BID KAREN Administration Clonidine HCl 0.2 mg 01/07/21 14:00 01/07/21 15:08 Clonidine 0.2 Mg Tab PO 0.2 mg Q8HR KAREN Administration Famotidine 10 mg 01/06/21 22:00 01/07/21 10:20 Famotidine 10 Mg Tab PO 10 mg BID KAREN Administration Heparin Sodium (Porcine) 5,000 unit 01/06/21 10:00 01/07/21 10:30 Heparin 5,000 Unit/1 Ml Vial SUB-Q Not Given Q12HR KAREN Hydralazine HCl 10 mg 01/05/21 23:00 01/07/21 08:11 Hydralazine 20 Mg/1 Ml Inj IV 10 mg Q2H PRN Administration Blood Pressure Hydralazine HCl 100 mg 01/06/21 08:00 01/07/21 12:59 Hydralazine 100 Mg Tab PO 100 mg TID KAREN Administration Hydromorphone HCl 0.5 mg 01/05/21 23:00 Hydromorphone 1 Mg/1 Ml Inj IV Q3H PRN Pain , Severe (7-10) Lactated Ringer's 1,000 mls @ 100 mls/hr 01/07/21 10:00 01/07/21 13:00 Lactated Ringers IV 01/08/21 19:59 100 mls/hr DIRECT KAREN Administration Insulin Human Isoph/Insulin Regular 15 unit 01/06/21 17:00 01/07/21 08:17 Insulin Nph/Regular 70/30 Inj SUB-Q 15 unit BIDDIAB KAREN Administration Insulin Human Lispro 0 unit 01/06/21 07:30 01/07/21 13:24 Insulin Lispro 100 Unit/Ml SUB-Q 6 unit ACHS KAREN Administration Protocol Isosorbide Dinitrate 20 mg 01/05/21 23:00 01/07/21 10:21 Isosorbide Dinitrate 20 Mg Tab PO 20 mg BID KAREN Administration Metoclopramide HCl 5 mg 01/06/21 12:00 Metoclopramide 10 Mg/2 Ml Inj IV Q6H PRN Nausea And Vomiting Ondansetron HCl 4 mg 01/05/21 23:00 Ondansetron 4 Mg/2 Ml Inj IV Q8H PRN Nausea And Vomiting Oxycodone/Acetaminophen 1 tab 01/05/21 23:00 Oxycodone /Acetaminophen 5-325mg Tab PO Q6H PRN Pain, Moderate (4-6) Sodium Chloride 10 ml 01/06/21 10:00 01/07/21 10:30 Sodium Chloride 0.9% 10 Ml Flush Syringe IV Not Given BID KAREN Sodium Chloride 10 ml 01/05/21 23:00 Sodium Chloride 0.9% 10 Ml Flush Syringe IV PRN PRN LINE FLUSH
[2021-01-07 20:17] LABS: Hepatitis C Virus Antibody Non-Reactive (NonReactive)
[2021-01-07] MEDS: NIFEdipine XL 30 MG TAB PO SCH (22:52)
[2021-01-08] MEDS: LACTATED RINGERS 1,000 ML IV SCH (01:03)
[2021-01-08] MEDS: cloNIDine 0.2 MG TAB PO SCH ×2 (05:42→14:34)
[2021-01-08 06:47] LABS: Calcium 8.4 mg/dL (8.4-10.2)
[2021-01-08] MEDS: hydrALAZINE 100 MG TAB PO SCH ×2 (09:57→14:34)
[2021-01-08] MEDS: ASPIRIN 81 MG TAB CHEW PO SCH (09:57)
[2021-01-08] MEDS: FAMOTIDINE 10 MG TAB PO SCH (09:57)
[2021-01-08] MEDS: carvediloL 25 MG TAB PO SCH (09:58)
[2021-01-08] MEDS: ISOSORBIDE DINITRATE 20 MG TAB PO SCH (09:58)
[2021-01-08] MEDS: HEPARIN 5,000 UNIT/1 ML VIAL SUB-Q SCH (09:58)
[2021-01-08] MEDS: NIFEdipine XL 30 MG TAB PO SCH (09:58)
[2021-01-08] MEDS: INSULIN LISPRO 100 UNIT/ML SUB-Q SCH ×2 (09:59→12:08)
[2021-01-08] MEDS: INSULIN NPH/REGULAR 70/30 INJ SUB-Q SCH (09:59)
[2021-01-08 14:39] VITALS: BP 144/88
--- NOTE | 2021-01-08 15:51 | Discharge Summary ---
Providers - Providers Date of Admission: 01/05/21 17:32 Date of discharge: 01/08/21 Attending physician: ANDREY LOREDO 01/06/21 07:29 Consult to Physician [CONS] Routine Comment: Consulting Provider: ANTONIO GRACE Physician Instructions: Reason For Exam: BHAVANA/CKD 01/06/21 07:30 Consult to Physician [CONS] Routine Comment: Consulting Provider: JOHN PADILLA Physician Instructions: Reason For Exam: Blurred vision, possible TIA Consult to Physician [CONS] Routine Comment: Consulting Provider: ZANDRA PARTIDA Physician Instructions: Reason For Exam: Hypertensive emergency and elevated troponin level Primary care physician: GEETA JANE Hospitalization Condition: Fair Pertinent studies: CT head without contrast Echocardiogram Renal ultrasound Multiple chest x-rays Hospital course: Chief complaint: Hypertensive emergency ,blurred vision and headache History of present illness: 35-year-old -[place] male with history of hypertension and diabetes and hyperlipidemia comes in for blurred vision. In the emergency room patient blood pressure was 260/160. Patient was initiated on Cardene drip. Patient states that is compliant with his antihypertensive medications but I am doubtful about him being compliant. Patient has obesity and reservoir 1 7 with her kidneys. Patient has headache and blurred vision but no weakness in any of the 4 extremities. No chest pain. No shortness of breath. Patient was referred by [facility] after they found his blood pressure to be 260s systolic. Discharge diagnosis -- Hypertensive emergency; present on admission Current Visit: Yes Status: Acute Continue multiple antihypertensives patient is on As needed hydralazine Closely monitor blood pressures and adjust as needed --Blurred vision /probably secondary to hypertensive emergency Rule out TIA (transient ischemic attack) Current Visit: Yes Status: Acute Symptoms due to hypertensive emergency Now resolved ,CT head without contrast no acute abnormality Neurology evaluation noted and appreciated Unable to get MRI due to obesity --Elevated brain natriuretic peptide (BNP) level Heart failure of reduced ejection fraction Current Visit: Yes Status: Acute Echo EF 40 to 45%, unable to give Lasix due to acute kidney injury Closely monitor --BHAVANA (acute kidney injury) Current Visit: Yes Status: Acute Worsening renal function Vasomotor nephropathy , closely monitor renal function Avoid nephrotoxin , renal ultrasound Nephrology following -- Elevated troponin /NSTEMI 2 Current Visit: Yes Status: Acute Probably nonspecific Hypertensive cardiomyopathy Cardiology evaluation noted and appreciated Possible stress test tomorrow -Uncontrolled type 2 diabetes mellitus; Current Visit: Yes Status: Chronic Probably noncompliance with medications Accu-Chek sliding scale coverage ADA diet Long-acting insulin Novolin 70/30 15 units twice a day HbA1c 8.9, diabetic education nutrition consult --Dyslipidemia; Current Visit: Yes Status: Chronic Low-cholesterol diet, statin Rigorous exercise as tolerated --morbid obesity; BMI 51.5; Current Visit: Yes Status: Chronic Patient needs diet modification lifestyle changes exercise as tolerated and weight reduction when medically stable Patient also need outpatient pulmonary evaluation for sleep study to rule out obstructive sleep apnea --medical noncompliance/social issues; Current Visit: Yes Status: Chronic Case management to assist with social issues --DVT prophylaxis Current Visit: Yes Status: Acute On heparin and GI prophylaxis We will closely monitor patient and adjust management as needed Plan of care reviewed with the patient and his nurse Weather Algorithm Scientist recommendations noted and appreciate Also discussed with case management Disposition: HOME / SELF CARE / HOMELESS Final Discharge Diagnosis (Prints w/discharge instructions): Hypertensive emergency present on admission. Resolved. History of hypertension/well controlled. Type 2 diabetes mellitus; moderate control. Dyslipidemia. Morbid obesity; BMI 51.5. Medical noncompliance. Heart failure of reduced ejection fraction. Non-ST elevation ME type II Time spent for discharge: 35 min Core Measure Documentation - Palliative Care Palliative Care/ Comfort Measures: Not Applicable - Core Measures Any of the following diagnoses?: none Exam - Constitutional Vitals: Temp Pulse Resp BP Pulse Ox 98.3 F 89 20 144/88 92 01/08/21 11:51 01/08/21 14:34 01/08/21 11:51 01/08/21 14:38 01/08/21 11:51 General appearance: Present: no acute distress, well-nourished - EENT Eyes: Present: PERRL, EOM intact - Neck Neck: Present: supple, normal ROM - Respiratory Respiratory effort: normal Respiratory: bilateral: diminished, rhonchi, negative: rales, wheezing - Cardiovascular Rhythm: regular Heart Sounds: Present: S1 & S2 - Extremities Extremities: no ischemia, No edema - Abdominal General gastrointestinal: Present: soft, non-tender, non-distended, normal bowel sounds - Integumentary Integumentary: Present: clear, warm - Musculoskeletal Musculoskeletal: strength equal bilaterally, generalized weakness - Psychiatric Psychiatric: appropriate mood/affect, cooperative - Neurologic Neurologic: CNII-XII intact, moves all extremities Plan Activity: advance as tolerated Diet: diabetic Additional Instructions: Strongly advised to comply with medications and diet and follow-up visits. Advised to follow private neurologist Dr. Te Whitfield in 1 week. Advised to follow private manager trade marketing[personnel placement specialist] for further evaluation of your vision. Advised to follow private MD/family physician in 3 to 5 days Follow up with: SHARON SMALLS MD [Staff Physician] - 7 Days GEETA JANE MD [Primary Care Provider] - 7 Days RICKI KAY MD [Staff Physician] - 7 Days ZANDRA PARTIDA MD [Staff Physician] - 7 Days Prescriptions: hydrALAZINE [Apresoline TAB] 100 mg PO TID #90 tab Aspirin [Aspirin BABY CHEW TAB] 81 mg PO QDAY #30 cloNIDine [Catapres] 0.2 mg PO Q8HR #90 tablet carvediloL [Coreg] 25 mg PO BID #60 tablet Insulin Regular, Human [HumuLIN R] 3 unit SQ ACHS #1 vial Isosorbide Dinitrate [Isordil] 20 mg PO BID #60 Furosemide [Lasix TAB] 40 mg PO QDAY #30 AtorvaSTATin [Lipitor] 40 mg PO QHS #30 tablet Insulin NPH/Regular [NovoLIN 70/30] 18 unit SUB-Q BIDDIAB #2 vial NIFEdipine XL [Procardia Xl] 30 mg PO Q12HR #60 tablet
--- NOTE | 2021-01-08 19:00 | Progress Note ---
Assessment and Plan Assessment Acute kidney injury, unknown baseline. Renal ultrasound unremarkable. Hypertensive emergency Nephrotic range proteinuria Morbid obesity Diabetes Recommendations F/u serologies May need renal biopsy. Patient advised of nephrotic range proteinuria and recommended close outpatient follow-up. Advised biopsy can also be done outp atient. Avoid large fluctuations in bp STELLA to be addedd once renal function is stable Keep bp < 130/80 Renally dose medications Avoid nephrotoxins Renal diet Strict glucose control Subjective Date of service: 01/08/21 Principal diagnosis: blurred vision, hypertensive emergency, BHAVANA Interval history: Patient was seen for his renal issues Nursing, interdisciplinary and consult notes were reviewed Vitals, input and output, medications and labs were reviewed Voiding well Objective - Exam Narrative Exam: General: No acute distress HEENT: Oral mucosa moist Neck: Supple, no JVD Chest: Clear to auscultation bilaterally Heart: RRR, S1 and S2, no pericardial rub Abdomen: Soft, nontender, no renal bruit Extremity: No peripheral cyanosis, edema Neurological: Alert, awake, no asterixis Dermatology: No skin rash Psych: No agitation Musculoskeletal: No joint effusion - Vital Signs Vital signs: Vital Signs - 12hr 01/08/21 01/08/21 01/08/21 08:38 08:42 09:58 Temperature 98.6 F Pulse Rate 91 H Respiratory 22 Rate Blood Pressure 178/108 151/94 151/94 O2 Sat by Pulse 90 Oximetry 01/08/21 01/08/21 01/08/21 11:51 14:34 14:38 Temperature 98.3 F Pulse Rate 89 89 Respiratory 20 Rate Blood Pressure 117/77 117/77 144/88 O2 Sat by Pulse 92 Oximetry - Lab 01/05/21 15:22 01/08/21 05:45 Most recent lab results Calcium 8.4 mg/dL (8.4-10.2) 01/08/21 05:45 Phosphorus 3.10 mg/dL (2.5-4.5) 01/07/21 19:21 Magnesium 2.50 mg/dL (1.7-2.3) H 01/07/21 02:15 Urine Creatinine 71.2 mg/dL (0.1-20.0) H 01/06/21 21:00 Urine Total Protein 643 mg/dL (5-11.8) H 01/06/21 21:00 Medications & Allergies - Medications Allergies/Adverse Reactions: Allergies IVP DYE Allergy (Uncoded 01/05/21 13:49) Vomiting Home Medications: Home Medications Medication Instructions Recorded Confirmed Last Taken Type Proventil Hfa 90 mcg INHALATION Q6HR 01/05/21 01/05/21 Unknown History Aspirin [Aspirin BABY CHEW TAB] 81 mg PO QDAY #30 01/08/21 Unknown Rx AtorvaSTATin [Lipitor] 40 mg PO QHS #30 tablet 01/08/21 Unknown Rx Furosemide [Lasix TAB] 40 mg PO QDAY #30 01/08/21 Unknown Rx Insulin NPH/Regular [NovoLIN 70/30] 18 unit SUB-Q BIDDIAB #2 vial 01/08/21 Un known Rx Insulin Regular, Human [HumuLIN R] 3 unit SQ ACHS #1 vial 01/08/21 Unknown Rx Isosorbide Dinitrate [Isordil] 20 mg PO BID #60 01/08/21 Unknown Rx NIFEdipine XL [Procardia Xl] 30 mg PO Q12HR #60 tablet 01/08/21 Unknown Rx carvediloL [Coreg] 25 mg PO BID #60 tablet 01/08/21 Unknown Rx cloNIDine [Catapres] 0.2 mg PO Q8HR #90 tablet 01/08/21 Unknown Rx hydrALAZINE [Apresoline TAB] 100 mg PO TID #90 tab 01/08/21 Unknown Rx
== END 2021-01-08 17:37 | disposition home or self-care (01) | DRG 280 ==
LOC: ED 13:31 → CC1 17:32 → 4A 23:31
PROVIDERS: ADMIT Internal Medicine; ATTEND Internal Medicine
DX: I16.1 Hypertensive emergency (principal); N17.0 Acute kidney failure with tubular necrosis; I21.A1 Myocardial infarction type 2; I42.9 Cardiomyopathy, unspecified; Z68.43 Body mass index [BMI] 50.0-59.9, adult; I50.20 Unspecified systolic (congestive) heart failure; I11.0 Hypertensive heart disease with heart failure; J45.909 Unspecified asthma, uncomplicated; E78.5 Hyperlipidemia, unspecified; Z79.899 Other long term (current) drug therapy; R79.89 Other specified abnormal findings of blood chemistry; H53.8 Other visual disturbances; E11.65 Type 2 diabetes mellitus with hyperglycemia; E66.01 Morbid (severe) obesity due to excess calories; Z91.14 Patient's other noncompliance with medication regimen
CPT/HCPCS: 36415; 70450; 71045; 76770; 80048; 80053; 80061; 80307; 81001; 82043; 82088; 82306; 82550; 82553; 82570; 82962; 83036; 83735; 83880; 83970; 84100; 84156; 84484; 85025; 85610; 85670; 85730; 86021; 86038; 86160; 86431; 86592; 86706; 86803; 93005; 93306; 96374; G0378; A9270-GY; J0360; J1644; J1815; J7030; J7120

== ENCOUNTER 2021-09-10 19:19 | Emergency (ER) | payer OTHER ==
[2021-09-10 19:30] VITALS: BP 140/80
--- NOTE | 2021-09-10 19:55 | Emergency Department Report ---
HPI - General Chief Complaint: Pain General Time Seen by Provider: 09/10/21 19:34 - HPI HPI: Patient is a 36-year-old male presenting for evaluation of his port. States while lifting his arms up part of his port got caught on something. States he is concerned that his port may be dislodged and or bleeding internally. ED Past Medical Hx - Past Medical History Previous Medical History?: Yes Hx Hypertension: Yes Hx Congestive Heart Failure: Yes Hx Psychiatric Treatment: Yes Hx Asthma: Yes - Surgical History Past Surgical History?: No - Social History Smoking Status: Unknown if ever smoked - Medications Home Medications: Home Medications Medication Instructions Recorded Confirmed Last Taken Type Proventil Hfa 90 mcg INHALATION Q6HR 01/05/21 01/05/21 Unknown History Aspirin [Aspirin BABY CHEW TAB] 81 mg PO QDAY #30 01/08/21 Unknown Rx AtorvaSTATin [Lipitor] 40 mg PO QHS #30 tablet 01/08/21 Unknown Rx Furosemide [Lasix TAB] 40 mg PO QDAY #30 01/08/21 Unknown Rx Insulin NPH/Regular [NovoLIN 70/30] 18 unit SUB-Q BIDDIAB #2 vial 01/08/21 Unknown Rx Insulin Regular, Human [HumuLIN R] 3 unit SQ ACHS #1 vial 01/08/21 Unknown Rx Isosorbide Dinitrate [Isordil] 20 mg PO BID #60 01/08/21 Unknown Rx NIFEdipine XL [Procardia Xl] 30 mg PO Q12HR #60 tablet 01/08/21 Unknown Rx carvediloL [Coreg] 25 mg PO BID #60 tablet 01/08/21 Unknown Rx cloNIDine [Catapres] 0.2 mg PO Q8HR #90 tablet 01/08/21 Unknown Rx hydrALAZINE [Apresoline TAB] 100 mg PO TID #90 tab 01/08/21 Unknown Rx ED Review of Systems ROS: Stated complaint: DIALYSIS CHEST PORT Other details as noted in HPI Comment: All other systems reviewed and negative Constitutional: no symptoms reported Respiratory: denies: cough, shortness of breath, wheezing Cardiovascular: denies: chest pain, palpitations Gastrointestinal: denies: abdominal pain, nausea, diarrhea Musculoskeletal: denies: back pain, joint swelling, arthralgia Skin: denies: rash, lesions Neurological: denies: headache, weakness, paresthesias Psychiatric: denies: anxiety, depression Physical Exam - Physical Exam Vital Signs: Vital Signs 09/10/21 19:26 Temperature 97.6 F Pulse Rate 80 Respiratory 18 Rate Blood Pressure 140/80 O2 Sat by Pulse 99 Oximetry Physical Exam: General: Alert and oriented x3, no acute distress Head: Normocephalic, atraumatic Eyes: PERRLA, EOMI ENT: Normal oropharynx, TMs clear Neck: Supple, nontender, no JVD, FROM Cardiac: Regular rate, regular rhythm, no murmurs, gallops or rubs Respiratory: Dialyis catheter to chest wall with sutures in place with overlying Tegaderm. There is no bleeding under the Tegaderm. Clear to auscultation bilaterally, no wheezes, rales, normal work of breathing Musculoskeletal: Full range of motion in all extremities, no obvious deformities, no tenderness, normal strength Skin: Warm, dry, intact, appropriate for ethnicity, no rashes or lesions Neurological: Cranial nerves II through XII grossly intact Psych: Normal mood and affect ED Course Vital Signs 09/10/21 19:26 Temperature 97.6 F Pulse Rate 80 Respiratory 18 Rate Blood Pressure 140/80 O2 Sat by Pulse 99 Oximetry ED Medical Decision Making - Medical Decision Making Patient reassured. He is stable for discharge home with return precautions. Critical care attestation.: If time is entered above; I have spent that time in minutes in the direct care of this critically ill patient, excluding procedure time. ED Disposition Clinical Impression: Encounter for assessment of peripherally inserted central catheter (PICC) Disposition: 01 HOME / SELF CARE / HOMELESS Is pt being admited?: No Does the pt Need Aspirin: No Condition: Stable Instructions: PICC Home Care Guide Time of Disposition: 19:56
== END 2021-09-10 20:45 | disposition home or self-care (01) ==
LOC: ED 19:19
DX: Z45.2 Encounter for adjustment and management of vascular access device (principal); I10 Essential (primary) hypertension; J45.909 Unspecified asthma, uncomplicated
CPT/HCPCS: 99283

== ENCOUNTER 2021-09-21 14:05 | Emergency (ER) | payer OTHER ==
[2021-09-21 15:25] VITALS: BP 161/111
[2021-09-21 16:03] LABS: Blood Urea Nitrogen 54 mg/dL (9-20); Hemolysis Index 15
[2021-09-21 16:06] LABS: Alanine Aminotransferase < 5 units/L (7-56); BUN/Creatinine Ratio 4
[2021-09-21 18:22] LABS: Basophils # (Auto) 0.1 K/mm3 (0.0-0.1); Basophils % (Auto) 2.1 % (0.0-1.8); Eosinophils # (Auto) 0.3 K/mm3 (0.0-0.4); Hematocrit 31.3 % (35.5-45.6); Hemoglobin 10.3 gm/dl (11.8-15.2); Lymphocytes # (Auto) 0.7 K/mm3 (1.2-5.4); Lymphocytes % (Auto) 10.7 % (13.4-35.0); Mean Corpuscular HGB Conc 33 % (32-34); Mean Corpuscular Volume 91 fl (84-94); Monocytes # (Auto) 0.6 K/mm3 (0.0-0.8); Monocytes % (Auto) 9.2 % (0.0-7.3); Platelet Count 279 K/mm3 (140-440); Red Blood Count 3.46 M/mm3 (3.65-5.03); Red Cell Distribution Width 17.4 % (13.2-15.2)
--- NOTE | 2021-09-22 12:11 | Electrocardiograph Report ---
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
== END 2021-09-21 20:15 | disposition left against medical advice (07) ==
LOC: ED 14:05
DX: Z99.2 Dependence on renal dialysis (principal); Z53.21 Procedure and treatment not carried out due to patient leaving prior to being seen by health care provider
CPT/HCPCS: 36415; 80053; 83735; 84100; 85025; 93005